=== PATIENT | female | born 1980 | race African-American/Black ===

== ENCOUNTER 2018-09-21 07:07 | Emergency (ER) | payer SELFPAY ==
[2018-09-21 07:30] LABS: #Eosinphils 0.2 thou/uL (0.0-0.7); #Lymphocytes 2.2 thou/uL (1.20-3.40); #Monocytes 0.5 thou/uL (0.11-0.59); #Neutrophils 3.7 thou/uL (1.40-6.50); %Basophils 0.7 % (0.0-1.0); %Eosinophils 2.8 % (0.0-10.0); %Lymphocytes 33.1 % (21.0-51.0); %Monocytes 7.7 % (0.0-10.0); %Neutrophils 55.7 % (42.0-75.0); Mean Corpuscular HGB CONC 31.9 g/dL (32.0-36.0); Mean Corpuscular Volume 75.3 fL (78.0-98.0); Mean Platelet Volume 8.3 fL (7.4-10.4); Platelet Count 390 thou/uL (130-400); RBC Distribution Width 15.7 % (11.5-14.5); Red Blood Cell (RBC) Count 4.58 mill/uL (4.20-5.40); White Blood Cell (WBC) Count 6.7 thou/uL (4.8-10.8)
[2018-09-21 07:53] LABS: ALT (SGPT) Less than 7 U/L (8-55); AST (SGOT) 12 U/L (5-34); Alkaline Phosphatase 72 U/L (40-150); Anion Gap 11 mmol/L (10-20); BUN (Urea Nitrogen) 10 mg/dL (7.0-18.7); Bilirubin, Total 0.3 mg/dL (0.2-1.2); Calc. Creatinine Clearance 0 mL/min (70-130); Carbon Dioxide 24 mmol/L (22-29); Chloride 105 mmol/L (98-107); Estimated GFR-MDRD 75; Globulin 3.6 g/dL (2.4-3.5); Glucose 182 mg/dL (70-105); Lipase 22 U/L (8-78); Protein, Total 7.6 g/dL (6.0-8.3); Sodium 136 mmol/L (136-145)
[2018-09-21 09:01] LABS: BHCG - Serum Negative (NEGATIVE); Pregs Control Background? CLEAR/WHITE (CLR/WHITE); Pregs Control Bar Appear? YES (CONTROL BAR)
[2018-09-21] MEDS ORDERED: Pantoprazole 40 MG VIAL ONE (09:05)
[2018-09-21] MEDS ORDERED: Ondansetron PF 4 MG/2 ML Vial ONE (09:05)
[2018-09-21] MEDS ORDERED: Ondansetron ODT 4 MG TAB ONE (09:34)
== END 2018-09-21 09:40 | disposition home or self-care (01) ==
LOC: ERS 07:07
DX: R10.9 Unspecified abdominal pain (principal); R11.2 Nausea with vomiting, unspecified; R19.7 Diarrhea, unspecified; I10 Essential (primary) hypertension; F32.9 Major depressive disorder, single episode, unspecified
CPT/HCPCS: 36415; 80053; 83690; 84703; 85025; 99284; C9113; J2405; Q0162

== ENCOUNTER 2020-04-08 01:26 | Inpatient (IN) | payer OTHER ==
[2020-04-08 01:59] LABS: #Basophils 0.1 thou/uL (0.0-0.2); #Eosinphils 0.1 thou/uL (0.0-0.7); #Lymphocytes 3.1 thou/uL (1.20-3.40); #Monocytes 0.5 thou/uL (0.11-0.59); #Neutrophils 4.5 thou/uL (1.40-6.50); %Basophils 0.7 % (0.0-1.0); %Eosinophils 1.1 % (0.0-10.0); %Monocytes 6.3 % (0.0-10.0); %Neutrophils 54.9 % (42.0-75.0); Hemoglobin 11.1 g/dL (12.0-16.0); Mean Corpuscular HGB CONC 32.4 g/dL (32.0-36.0); Mean Corpuscular Volume 74.2 fL (78.0-98.0); Platelet Count 442 thou/uL (130-400); RBC Distribution Width 17.2 % (11.5-14.5); Red Blood Cell (RBC) Count 4.61 mill/uL (4.20-5.40); White Blood Cell (WBC) Count 8.3 thou/uL (4.8-10.8)
[2020-04-08] MEDS ORDERED: Nitroglycerin 2% Ointment 1 INCH/1 GM Packet ONE (02:16)
[2020-04-08] MEDS ORDERED: hydrALAZINE 20 MG/ML VIAL ONE (02:16)
[2020-04-08 02:27] LABS: BHCG - Serum Negative (NEGATIVE); Pregs Control Background? CLEAR/WHITE (CLR/WHITE); Pregs Control Bar Appear? YES (CONTROL BAR)
[2020-04-08 02:29] LABS: ALT (SGPT) 8 U/L (8-55); AST (SGOT) 14 U/L (5-34); Alkaline Phosphatase 75 U/L (40-110); Anion Gap 17 mmol/L (10-20); BUN (Urea Nitrogen) 8 mg/dL (7.0-18.7); Bilirubin, Total 0.4 mg/dL (0.2-1.2); Calc. Creatinine Clearance 0 mL/min (70-130); Calcium 9.1 mg/dL (7.8-10.44); Carbon Dioxide 21 mmol/L (22-29); Chloride 104 mmol/L (98-107); Estimated GFR-MDRD 76; Globulin 3.5 g/dL (2.4-3.5); Glucose 126 mg/dL (70-105); Potassium 3.8 mmol/L (3.5-5.1); Protein, Total 7.5 g/dL (6.0-8.3); Sodium 138 mmol/L (136-145)
[2020-04-08] MEDS ORDERED: Ondansetron PF 4 MG/2 ML Vial ONE (02:51)
[2020-04-08] MEDS ORDERED: Furosemide 40 MG/4 ML VIAL ONE (03:48)
[2020-04-08] MEDS ORDERED: Calcium Carbonate 500 MG ChewTAB PO PRN (03:50)
--- NOTE | 2020-04-08 04:00 | PDOC.FPRHP ---
- History of Present Illness Chief Complaint: SOB, cough, ROPER History of Present Illness: Pt is a 39yo F with PMH of HTN presents to ED with two wk hx of cough, SOB, and ROPER. Today cough worsened and had blood tinged sputum. She also reports recent sx of sore throat and diarrhea x3 episodes today. She does endorse orthopnea but denies LE edema and reports occasional palpitations, not currently happening. No Fhx of early cardiac disease. No personal hx of any lung or heart disease. She denies fever, ill contacts, and COVID exposure. She has an appt with [facility] to establish care but has not been seen yet. She used to take Amlodpine/HCTZ but hasn't been on those meds for quite some time. She does not check BP's at home. ED Course: In the ED patient received 40mg IV lasix, Nitro 1" transdermal paste, Hydralazine 10mg IV, and Zofran 4mg IV. - Allergies/Adverse Reactions Allergies Allergy/AdvReac Type Severity Reaction Status Date / Time No Known Drug Allergies Allergy Verified 04/08/20 16:33 - History PMHx: HTN, depression PSHx: none FHx: DM, CAD-grandmother, father (older age) Social: Pt denies alcohol, drug, and tobacco use. PCP: [facility]- [facility] call - Review of Systems General: denies: fever/chills, weight/appetite/sleep changes, night sweats, fatigue Eyes: denies: eye pain, vision changes ENT: denies: nasal congestion, rhinorrhea Respiratory: reports: cough, congestion, shortness of breath Cardiovascular: reports: chest pain. denies: palpitation, edema, paroxysmal nocturnal dyspnea Gastrointestinal: denies: nausea, vomiting, diarrhea, constipation, abdominal pain Genitourinary: denies: incontinence, dysuria, polyuria Skin: denies: rashes, lesions Musculoskeletal: denies: pain, tenderness, stiffness, swelling Neurological: denies: numbness, syncope, seizure, weakness Psychological: denies: anxiety, depression - Vital signs BP: 146/109 HR: 103 RR: 20 Tmax: 98.7 Pox: 97% on 2L Wt: 95.25kg - Physical Exam Constitutional: NAD, awake, alert and oriented -Constitutional: obese HEENT: normocephalic and atraumatic, PERRLA, EOMI, conjunctiva clear, grossly normal vision, grossly normal hearing, MMM, oropharynx clear Neck: supple, FROM -Neck: anterior cervical LAD Chest: no-tender to palpation Heart: RRR, normal S1/S2, no murmurs/rubs/gallops -Heart: heart sounds are distant, but limited exam d/t isolation stethoscope used Lungs: CTAB, no respiratory distress, no wheezing, no retractions Abdomen: soft, bowel sounds present, no masses/distention -Abdomen: mildly tender throughout Neurological: no focal deficit Skin: no rash/lesions, capillary refill <2 seconds Heme/Lymphatic: no unusual bruising or bleeding, no purpura Psychiatric: normal mood and affect, good judgment and insight, intact recent and remote memory FMR H&P: Results - Labs Result Diagrams: 04/09/20 04:39 04/10/20 11:00 Lab results: WBC 8.3 thou/uL (4.8-10.8) 04/08/20 01:47 Hgb 11.1 g/dL (12.0-16.0) L 04/08/20 01:47 Hct 34.2 % (36.0-47.0) L 04/08/20 01:47 MCV 74.2 fL (78.0-98.0) L 04/08/20 01:47 Plt Count 442 thou/uL (130-400) H 04/08/20 01:47 Neutrophils % 54.9 % (42.0-75.0) 04/08/20 01:47 Sodium 138 mmol/L (136-145) 04/08/20 01:47 Potassium 3.8 mmol/L (3.5-5.1) 04/08/20 01:47 Chloride 104 mmol/L (98-107) 04/08/20 01:47 Carbon Dioxide 21 mmol/L (22-29) L 04/08/20 01:47 BUN 8 mg/dL (7.0-18.7) 04/08/20 01:47 Creatinine 0.99 mg/dL (0.6-1.1) 04/08/20 01:47 Glucose 126 mg/dL (70-105) H 04/08/20 01:47 Lactic Acid 2.1 mmol/L (0.5-2.2) 04/08/20 01:47 Calcium 9.1 mg/dL (7.8-10.44) 04/08/20 01:47 Total Bilirubin 0.4 mg/dL (0.2-1.2) 04/08/20 01:47 AST 14 U/L (5-34) 04/08/20 01:47 ALT 8 U/L (8-55) 04/08/20 01:47 Alkaline Phosphatase 75 U/L (40-110) 04/08/20 01:47 B-Natriuretic Peptide 235.0 pg/mL (0-100) H 04/08/20 01:47 Serum Total Protein 7.5 g/dL (6.0-8.3) 04/08/20 01:47 Albumin 4.0 g/dL (3.5-5.0) 04/08/20 01:47 - Radiology Interpretation Chest x-ray Status: image reviewed by me CT scan - chest Status: image reviewed by me, report reviewed by me (7mm nodule in RUL, groundglass opacities in L lung base) FMR H&P: A/P - Problem List (1) Acute respiratory failure with hypoxia Current Visit: Yes Status: Acute Code(s): J96.01 - ACUTE RESPIRATORY FAILURE WITH HYPOXIA (2) Elevated brain natriuretic peptide (BNP) level Current Visit: Yes Status: Acute Code(s): R79.89 - OTHER SPECIFIED ABNORMAL FINDINGS OF BLOOD CHEMISTRY (3) Person under investigation for COVID-19 Current Visit: Yes Status: Acute Code(s): Z20.828 - CONTACT W AND EXPOSURE TO OTH VIRAL COMMUNICABLE DISEASES (4) HTN (hypertension) Current Visit: Yes Status: Chronic Code(s): I10 - ESSENTIAL (PRIMARY) HYPERTENSION (5) Microcytic anemia Current Visit: Yes Status: Chronic Code(s): D50.9 - IRON DEFICIENCY ANEMIA, UNSPECIFIED - Plan Acute Hypoxic Respiratory Failure 2/2 COVID vs New Onset CHF: -CXR with groundglass opacities in LLL, no s/sx of edema on cXR or exam -BNP 200's -Hypoxic to 89% on RA, continue prn O2 -procal pending -COVID swab pending, droplet precautions in place -CP without elevation in troponin, has Twave inversion V4-V6, continue to trend trop however I think CP related to primary process -echo when COVID results -s/p Lasix and Nitro paste in ED. Continue to monitor IO and daily wt and determine need for further diuresis. Microcytic Anemia: -stable from previous visits -will get Fe studies HTN: -start daily hctz. Monitor for need of upwards titration. Dispo: Stable, LOS likely >48h DVT PPx: SCD GI PPx: none Code Status: Full PCP: [facility]- city call FMR H&P: Upper Level - Plan Date/Time: 04/08/207 I, [], have evaluated this patient and agree with findings/plan as outlined by sports management intern resident. Pertinent changes/additions are listed here. Addendum - Attending - Attending Attestation Date/Time: 04/10/202004 I personally evaluated the patient and discussed the management with Dr. Bill on 04/08/20 I agree with the History, Examination, Assessment and Plan documented above with any addition or exceptions noted below -39yo F with history of HTN on no medications presents to ED with two wk hx of cough, SOB, and ROPER. Today cough worsened and had blood tinged sputum. She also reports recent sx of sore throat and diarrhea x3 episodes today. She does endorse orthopnea but denies LE edema and reports occasional palpitations, not currently happening. No Fhx of early cardiac disease. No personal hx of any lung or heart disease. She denies fever, ill contacts, and COVID exposure. PMH/PSH/Meds/SH reviewed and agree with resident's documentation. Afebrile VSS. Exam repeated by me and agree with resident's findings. A/P: 1) Dyspnea- elevated BNP with no known h/o CHF. Given 1 dose of lasix and will monitor response. COVID swab pending. 2) HTN - restart antihypertensives. .
[2020-04-08 05:22] LABS: Lactic Acid 2.5 mmol/L (0.5-2.2)
[2020-04-08 05:26] LABS: Iron 27 ug/dL (50-170); Iron Binding Capacity, Total 481 mcg/dL (265-497)
[2020-04-08] MEDS ORDERED: Acetaminophen 325 MG TAB ONE (06:14)
[2020-04-08] MEDS: Acetaminophen 325 MG TAB PO PRN ×2 (06:24→20:14)
--- NOTE | 2020-04-08 07:27 | CT ---
PRELIMINARY REPORT/[facility]/EMERGENCY AFTER HOURS PROCEDURE EXAM: CTA Chest with Intravenous Contrast CLINICAL HISTORY: Pt reports SOB and productive cough X2 weeks, and progressively getting worse tonight TECHNIQUE: Axial CTA images of the chest with intravenous contrast. Three-dimensional MIP/volume rendered reform ations were performed. CONTRAST: With; ISOVUE 370 COMPARISON: None provided. FINDINGS: PULMONARY ARTERIES There is no intraluminal filling defect suspicious for PE. AORTA No thoracic aortic aneurysm or dissection. LUNGS 7 mm groundglass nodule in the right upper lobe. Minimal groundglass opacities at the left lung base with anterior solid opacities which are nonspecific and may represent atelectasis. PLEURAL SPACES No pleural effusion. No pneumothorax. HEART AND MEDIASTINUM The heart is top normal in size. LYMPH NODES No lymphadenopathy. BONES No focal osseous abnormality or acute fracture. CHEST WALL AND UPPER ABDOMEN 1.7 cm lobulated cyst in the posterior right hepatic lobe. IMPRESSION: No pulmonary embolism. No thoracic aortic aneurysm or dissection. 7 mm groundglass nodule in the right upper lobe. According to the 2017 Fleischner criteria, CT at 6-1 2 months to confirm persistence, then CT every 2 years until 5 years is recommended. Minimal groundglass opacities at the left lung base with anterior solid opacities which are nonspecif ic and may represent atelectasis. ELECTRONICALLY SIGNED BY: Desirae Thomas MD Apr 08, 2020 3:09:01 AM CDT This report is intended for review by the ordering physician only, in accordance of law. If you recei ve this report in error, please call [facility] at [phone]. FINAL REPORT Exam: CT angiogram of the chest HISTORY: Productive cough x2 weeks. Worsening shortness of breath. COMPARISON: None TECHNIQUE: CT angiogram of the chest is performed in the axial plane. Three-dimensional reformatted i mages are submitted for interpretation FINDINGS: Mediastinum: No mass, lymphadenopathy or hematoma. HEART: Mildly enlarged cardiac silhouette. No significant pericardial effusion Aorta: No aneurysm or dissection Upper solid abdominal viscera: Hypodensity in the right hepatic lobe measuring 1.4 x 1.7 cm, compatib le with a cyst Trachea and central bronchi: Patent Pleural spaces: No effusion Lung parenchyma: Patchy groundglass opacities. Scar and atelectasis in the lung bases. Groundglass no dule in the right upper lobe. Pneumothorax: None Osseous structures: No lytic or blastic lesions Pulmonary arteries: Adequate contrast opacification pulmonary arterial system to the level of segment al arteries. No filling defect to suggest pulmonary embolism IMPRESSION: 1. This report is in agreement with initial report by [facility]. 2. No evidence of pulmonary artery embolism to the level of segmental arteries. 3. Groundglass nodule in the right upper lobe as described in this report by [facility]. Code LN Transcribed Date/Time: 04/08/2020 8:20 AM
--- NOTE | 2020-04-08 07:40 | RAD ---
EXAM: Single view of the chest HISTORY: Chest pain COMPARISON: None FINDINGS: Single view of the chest shows an enlarged cardiomediastinal silhouette. There is no eviden ce of consolidation, mass, or pleural effusion. The bones are unremarkable. IMPRESSION: Cardiomegaly
[2020-04-08] MEDS: Ferrous Sulfate 325 MG TAB PO SCH ×2 (08:46→17:29)
[2020-04-08] MEDS: Hydrochlorothiazide 25 MG TAB PO SCH ×2 (08:46→20:09)
[2020-04-08] MEDS: Polyethylene Glycol 3350 17 GM Packet PO SCH (08:46)
[2020-04-08] MEDS ORDERED: Iopamidol 370 76% 100 ML VIAL ONE (09:26)
[2020-04-08] MEDS ORDERED: Ketorolac Tromethamine 30 MG/ML VIAL IVP SCH (17:15)
[2020-04-09 05:38] LABS: #Eosinphils 0.1 thou/uL (0.0-0.7); #Lymphocytes 2.6 thou/uL (1.20-3.40); #Monocytes 0.4 thou/uL (0.11-0.59); #Neutrophils 4.6 thou/uL (1.40-6.50); %Basophils 0.5 % (0.0-1.0); %Eosinophils 1.1 % (0.0-10.0); %Lymphocytes 33.8 % (21.0-51.0); %Monocytes 5.7 % (0.0-10.0); %Neutrophils 58.9 % (42.0-75.0); Hemoglobin 10.2 g/dL (12.0-16.0); Mean Corpuscular HGB CONC 31.7 g/dL (32.0-36.0); Mean Corpuscular Hemoglobin 23.8 pg (27.0-31.0); Mean Corpuscular Volume 75.3 fL (78.0-98.0); Mean Platelet Volume 8.7 fL (7.4-10.4); Platelet Count 408 thou/uL (130-400); RBC Distribution Width 17.2 % (11.5-14.5); Red Blood Cell (RBC) Count 4.26 mill/uL (4.20-5.40); White Blood Cell (WBC) Count 7.8 thou/uL (4.8-10.8)
[2020-04-09 05:41] LABS: Anion Gap 15 mmol/L (10-20); BUN (Urea Nitrogen) 18 mg/dL (7.0-18.7); Calc. Creatinine Clearance 101 mL/min (70-130); Calcium 9.1 mg/dL (7.8-10.44); Carbon Dioxide 24 mmol/L (22-29); Chloride 99 mmol/L (98-107); Estimated GFR-MDRD 64; Glucose 135 mg/dL (70-105); Potassium 3.7 mmol/L (3.5-5.1); Sodium 134 mmol/L (136-145)
--- NOTE | 2020-04-09 07:05 | PDOC.FM ---
- Subjective Subjective: Pt states that she feeling better this morning. She reports mild SOB when up and walking. She denies chest pain, nausea, vomiting, or diarrhea. - Objective MAR Reviewed: Yes Vital Signs & Weight: Vital Signs (12 hours) Temp Pulse Resp BP Pulse Ox 04/09/20 04:00 98.1 F 81 18 141/69 H 95 04/08/20 23:40 98.5 F 87 20 160/72 H 96 04/08/20 20:00 98.7 F 93 20 136/78 96 Weight Weight 96.071 kg Result Diagrams: 04/09/20 04:39 04/10/20 11:00 Phys Exam - Physical Examination Constitutional: NAD HEENT: moist MMs Neck: no JVD Respiratory: no wheezing, clear to auscultation bilateral Cardiovascular: RRR, no significant murmur, no rub Gastrointestinal: soft, non-tender, no distention, positive bowel sounds Musculoskeletal: pulses present, edema present (trace) Neurological: moves all 4 limbs Psychiatric: A&O x 3 Skin: cap refill <2 seconds Dx/Plan (1) Acute respiratory failure with hypoxia Code(s): J96.01 - ACUTE RESPIRATORY FAILURE WITH HYPOXIA Status: Acute (2) Person under investigation for COVID-19 Code(s): Z20.828 - CONTACT W AND EXPOSURE TO OTH VIRAL COMMUNICABLE DISEASES Status: Acute (3) HTN (hypertension) Code(s): I10 - ESSENTIAL (PRIMARY) HYPERTENSION Status: Chronic (4) Microcytic anemia Code(s): D50.9 - IRON DEFICIENCY ANEMIA, UNSPECIFIED Status: Chronic - Plan Plan: Acute hypoxic respiratory failure, Resolved COVID-19 PUI -Pending -Respiratory support as needed -Tylenol for fever/symptom control Elevated BNP -Will obtain Echo when COVID testing has resulted Microcytic anemia 2/2 iron deficiency -Iron supplementation HTN -Continue HCTZ started this hospitalization Addendum - Attending - Attending Attestation Date/Time: 04/10/202006 I personally evaluated the patient and discussed the management with Dr. Harry on 04/09/20 I agree with the History, Examination, Assessment and Plan documented above with any addition or exceptions noted below- Patient feeling better. Afebile VSS. A/P: 1) Dyspnea- improved; plan for echo once COVID status determined. Weaned off O2; continue to monitor. 2) HTN -started on lisinopril and HCTZ; continue to titrate.
[2020-04-09] MEDS: Ferrous Sulfate 325 MG TAB PO SCH ×2 (07:50→18:15)
[2020-04-09] MEDS: Polyethylene Glycol 3350 17 GM Packet PO SCH (07:50)
[2020-04-09] MEDS: Hydrochlorothiazide 25 MG TAB PO SCH ×2 (07:50→20:38)
[2020-04-09] MEDS: Acetaminophen 325 MG TAB PO PRN (15:18)
--- NOTE | 2020-04-10 06:27 | PDOC.FM ---
- Subjective Subjective: Pt states she is doing well this morning. She has some mild SOB when walking. She reports some chest pain with coughing. - Objective MAR Reviewed: Yes Vital Signs & Weight: Vital Signs (12 hours) Temp Pulse Resp BP Pulse Ox 04/10/20 03:58 98 F 89 12 163/103 H 96 04/09/20 23:15 86 16 127/66 98 04/09/20 20:41 98 F 88 15 133/70 97 Weight Admit Weight 96.434 kg Weight 94.982 kg I&O: 04/08/20 04/09/20 04/10/20 06:59 06:59 06:59 Intake Total 1180 Balance 1180 Result Diagrams: 04/09/20 04:39 04/10/20 11:00 Phys Exam - Physical Examination Constitutional: NAD HEENT: moist MMs Neck: no JVD Respiratory: no wheezing, clear to auscultation bilateral Cardiovascular: RRR, no significant murmur Gastrointestinal: soft, non-tender, no distention, positive bowel sounds Musculoskeletal: no edema, pulses present Neurological: moves all 4 limbs Psychiatric: A&O x 3 Skin: cap refill <2 seconds Dx/Plan (1) Acute respiratory failure with hypoxia Code(s): J96.01 - ACUTE RESPIRATORY FAILURE WITH HYPOXIA Status: Acute (2) Person under investigation for COVID-19 Code(s): Z20.828 - CONTACT W AND EXPOSURE TO OTH VIRAL COMMUNICABLE DISEASES Status: Acute (3) HTN (hypertension) Code(s): I10 - ESSENTIAL (PRIMARY) HYPERTENSION Status: Chronic (4) Microcytic anemia Code(s): D50.9 - IRON DEFICIENCY ANEMIA, UNSPECIFIED Status: Chronic - Plan Plan: Acute hypoxic respiratory failure, Resolved COVID-19 Negative -Respiratory support as needed -Tylenol for fever/symptom control -Will transfer to medical floor Elevated BNP -Will obtain Echo today Microcytic anemia 2/2 iron deficiency -Iron supplementation HTN -Continue HCTZ started this hospitalization Addendum - Attending - Attending Attestation Date/Time: 04/10/202009 I personally evaluated the patient and discussed the management with Dr. Harry I agree with the History, Examination, Assessment and Plan documented above with any addition or exceptions noted below- Patient feeling better; SOB resolved. Afebrile VSS. A/P: 1) Dyspnea- improved; COVID negative; echo pending. 2) HTN- BP improved; continue current meds.
[2020-04-10] MEDS: Hydrochlorothiazide 25 MG TAB PO SCH ×2 (09:20→20:11)
[2020-04-10] MEDS: Ferrous Sulfate 325 MG TAB PO SCH ×2 (09:20→17:29)
[2020-04-10] MEDS: Lisinopril 10 MG TAB PO SCH (09:20)
[2020-04-10] MEDS: Polyethylene Glycol 3350 17 GM Packet PO SCH (09:21)
[2020-04-10 11:43] LABS: Anion Gap 13 mmol/L (10-20); BUN (Urea Nitrogen) 12 mg/dL (7.0-18.7); Calc. Creatinine Clearance 107 mL/min (70-130); Calcium 9.4 mg/dL (7.8-10.44); Carbon Dioxide 29 mmol/L (22-29); Chloride 96 mmol/L (98-107); Estimated GFR-MDRD 69; Glucose 248 mg/dL (70-105); Potassium 3.6 mmol/L (3.5-5.1); Sodium 134 mmol/L (136-145)
--- NOTE | 2020-04-10 15:42 | PQF ---
CLINICAL DOCUMENTATION IMPROVEMENT CLARIFICATION FORM: ICD-10 Updated PLEASE DO AN ADDENDUM TO THE PROGRESS NOTE WITH ANY DOCUMENTATION UPDATES OR ADDITIONS AND CARRY THROUGH TO DC SUMMARY. THANK YOU. DATE: 04/10/2020 ATTN: Dr. Harry/ Attending Dr. Freddy Carr Please exercise your independent, professional judgment in responding to the clarification form. Clinical indicators are provided on the bottom of this form for your review Please check appropriate box(s): BMI > 40 with associated diagnosis of: (check one) [ x ] Morbid (Severe) Obesity [ x ] Due to excess calories [ ] Overweight [ ] Obesity [ ] Other diagnosis [ ] Unable to determine In addition, please specify: Present on Admission (POA): [ x ] Yes [ ] No [ ] Unable to Determine For continuity of documentation, please document condition throughout progress notes and discharge summary. Thank You. CLINICAL INDICATORS - SIGNS / SYMPTOMS / LABS / RESULTS AND LOCATION IN EMR H&P 04/08: Physical Exam: obese Nursing Assessment 04/08 0143: BMI 44.4 RISKS: H&P 04/08: PMH: HTN. Physical Exam: obese Acute respiratory failure with hypoxia. TREATMENT: Results Technician consult triggered for diarrhea. Order 04/08: Diet: heart healthy lo sodium BMI < 18.5 Under weight = 18.5 - 24.9 Healthy = 25.0 - 29.9 Slightly Overweight = 30.0 - 34.9 Obese/Class I = 35.0 - 39.9 Severely Obese/Class II = 40.0 and Over Morbidly Obese/Class III Thank you, Deonna (This form is maintained as a part of the permanent medical record) 2015 [employer]. All Rights Reserved Deonna Henry RN, BSN [email or web address] [employer] [facility]
[2020-04-10] MEDS: Acetaminophen 325 MG TAB PO PRN (15:52)
--- NOTE | 2020-04-11 06:12 | PDOC.FM ---
- Subjective Subjective: NAEO. Pt states she feels fine this morning. No SOB - Objective MAR Reviewed: Yes Vital Signs & Weight: Vital Signs (12 hours) Temp Pulse Resp BP Pulse Ox 04/10/20 20:00 98.2 F 88 18 124/83 96 Weight Admit Weight 96.434 kg Weight 94.886 kg I&O: 04/09/20 04/10/20 04/11/20 06:59 06:59 06:59 Intake Total 1180 600 Balance 1180 600 Result Diagrams: 04/09/20 04:39 04/10/20 11:00 Phys Exam - Physical Examination Constitutional: NAD HEENT: moist MMs Neck: no JVD Respiratory: no wheezing, clear to auscultation bilateral Cardiovascular: RRR, no significant murmur, no rub Gastrointestinal: soft, non-tender Musculoskeletal: no edema, pulses present Neurological: normal sensation, moves all 4 limbs Psychiatric: A&O x 3 Skin: normal turgor, cap refill <2 seconds Dx/Plan (1) Acute respiratory failure with hypoxia Code(s): J96.01 - ACUTE RESPIRATORY FAILURE WITH HYPOXIA Status: Acute (2) Person under investigation for COVID-19 Code(s): Z20.828 - CONTACT W AND EXPOSURE TO OTH VIRAL COMMUNICABLE DISEASES Status: Acute (3) HTN (hypertension) Code(s): I10 - ESSENTIAL (PRIMARY) HYPERTENSION Status: Chronic (4) Microcytic anemia Code(s): D50.9 - IRON DEFICIENCY ANEMIA, UNSPECIFIED Status: Chronic - Plan Plan: Acute hypoxic respiratory failure, Resolved New onset HFrEF -Will consult cardiology today -Pt to be started on aspirin, statin, ACEi, and betablocker at the time of discharge COVID-19 Negative Elevated BNP -Echo: EF 35-40, grade 1/3 diastolic heart failure Microcytic anemia 2/2 iron deficiency -Iron supplementation HTN -Continue HCTZ started this hospitalization Addendum - Attending - Attending Attestation Date/Time: 04/11/201843 I personally evaluated the patient and discussed the management with Dr. Harry I agree with the History, Examination, Assessment and Plan documented above with any addition or exceptions noted below - Patient feeling well. SOB resolved. Afebrile VSS. A/P: 1) Acute hypoxic resp failure- resolved. 2) Newly diagnosed HFrEF- transferred to telemetry; cardiology consulted; plan for cath on Tuesday. 3) HTN- BP improved; continue current meds.
[2020-04-11] MEDS: Ferrous Sulfate 325 MG TAB PO SCH ×2 (07:36→15:54)
[2020-04-11] MEDS: Hydrochlorothiazide 25 MG TAB PO SCH (07:36)
[2020-04-11] MEDS: Polyethylene Glycol 3350 17 GM Packet PO SCH (07:37)
[2020-04-11] MEDS: Lisinopril 10 MG TAB PO SCH (07:37)
[2020-04-11] MEDS: Aspirin 81 mg Enteric Coated Tablet PO SCH (08:50)
[2020-04-11] MEDS: Acetaminophen 325 MG TAB PO PRN (09:01)
[2020-04-11] MEDS ORDERED: Potassium Chloride 20 MEQ TAB PO SCH (14:45)
[2020-04-11] MEDS ORDERED: Furosemide 20 MG/2 ML VIAL SLOW IVP SCH (14:45)
[2020-04-11] MEDS ORDERED: Communication Order-Pharmacy FS SCH (15:00)
[2020-04-11] MEDS: Carvedilol 6.25 MG TAB PO SCH (15:54)
--- NOTE | 2020-04-11 15:56 | CON ---
DATE OF CONSULTATION: 04/11/2020 REASON FOR STAY: Congestive heart failure, systolic, likely acute on chronic. HISTORY OF PRESENT ILLNESS: Ms. Guerrier is a very pleasant 39-year-old woman, who said she has been having cough and difficulty with breathing for a couple of weeks. Also aware of her heart pounding and some "soreness" in her chest. She said in retrospect this has been going on about 2 weeks. She finally came to the emergency room for evaluation and she was ultimately found to have ejection fraction 35% to 40% on echocardiogram. The patient does not smoke or use tobacco. No history of diabetes. No history of high cholesterol. Otherwise, she has been healthy. ALLERGIES: SHE IS NOT TAKING ANY MEDICINES PRIOR TO ADMISSION. ALLERGIES: NONE KNOWN. SOCIAL HISTORY: As outlined above. Negative for alcohol or tobacco. REVIEW OF SYSTEMS: CONSTITUTIONAL: No significant weight gain or loss. VISION: No changes. HEARING: No changes. PULMONARY: No cough or wheezing. CARDIAC: As outlined above. She is able to lie down to about a 15 degrees angle before she starts feeling short of breath. GASTROINTESTINAL: No nausea, vomiting, or diarrhea. SKIN: No rashes. PHYSICAL EXAMINATION: GENERAL: On exam, this is a delightful 39-year-old female, resting comfortably. VITAL SIGNS: Her blood pressure 121/67; pulse is 90, sinus on the monitor. HEENT: Eyes; sclerae are nonicteric. Mouth; mucous membranes moist. NECK: Supple. No lymphadenopathy. LUNGS: Clear. No wheezing. CARDIAC: Normal S1. Normal S2. No murmur, rub, or gallop. ABDOMEN: Obese, nontender. No hepatosplenomegaly. EXTREMITIES: Warm and dry. No clubbing, cyanosis, or edema. Good dorsalis pedis pulses. DIAGNOSTIC STUDIES: Echocardiogram, ejection fraction 35% to 40%. As mentioned, she can lay flat to about 15 degrees before she feels uncomfortable. Other laboratory, hemoglobin slightly low at 10.2. EKG, sinus rhythm, nonspecific ST and T-wave changes. ASSESSMENT: 1. Congestive heart failure, systolic, acute on chronic, improving, but still not totally compensated, can lie flat. 2. Strongly suspect cardiomyopathy, but need to also consider the possibility of underlying coronary artery disease. PLAN: 1. We will change from SARAH inhibitor to Entresto. I will give her an extra dose of Lasix now and then in the morning. 2. Increase carvedilol as tolerated. 3. Proceed to cardiac catheterization on Tuesday. Discussed risk of stroke, heart attack, iodine allergy, loss of blood supply to leg or kidney, stent thrombosis, stent restenosis. She understands and wished to proceed. Job ID: [id number]
[2020-04-11] MEDS: Atorvastatin Calcium 40 MG TAB PO SCH (20:55)
--- NOTE | 2020-04-12 07:13 | PDOC.FM ---
- Subjective Subjective: Patient doing very well. No significant overnight events. Abiding by fluid restrictions. Denies chest pain, shortness of breath, cough, congestion. No concerns. Patient's mother in law present at bedside. Explained plan throughout weekend. - Objective MAR Reviewed: Yes Vital Signs & Weight: Vital Signs (12 hours) Temp Pulse Resp BP BP Pulse Ox 04/12/20 04:10 98.1 F 77 20 121/64 96 04/11/20 19:25 98.3 F 87 20 127/62 98 Weight Admit Weight 96.434 kg Weight 92.533 kg I&O: 04/11/20 04/12/20 04/13/20 06:59 06:59 06:59 Intake Total 600 960 Balance 600 960 Result Diagrams: 04/09/20 04:39 04/10/20 11:00 EKG Reviewed by me: Yes Radiology Reviewed by me: Yes Phys Exam - Physical Examination Constitutional: NAD HEENT: moist MMs Respiratory: no wheezing, clear to auscultation bilateral Cardiovascular: RRR, no significant murmur Gastrointestinal: soft, non-tender, no distention, positive bowel sounds Musculoskeletal: no edema, pulses present Neurological: non-focal, moves all 4 limbs Psychiatric: normal affect, A&O x 3 Skin: no rash, cap refill <2 seconds Dx/Plan (1) Combined systolic and diastolic heart failure Code(s): I50.40 - UNSP COMBINED SYSTOLIC AND DIASTOLIC (CONGESTIVE) HRT FAIL Status: Acute (2) Acute respiratory failure with hypoxia Code(s): J96.01 - ACUTE RESPIRATORY FAILURE WITH HYPOXIA Status: Acute (3) HTN (hypertension) Code(s): I10 - ESSENTIAL (PRIMARY) HYPERTENSION Status: Chronic (4) Microcytic anemia Code(s): D50.9 - IRON DEFICIENCY ANEMIA, UNSPECIFIED Status: Chronic - Plan Plan: 39 year old female presents with shortness of breath: Acute hypoxic respiratory failure, Resolved - 2/2 newly diagnosed combined HFpEF and HFrEF - Diurese as needed - COVID-19 Negative New onset/newly diagnosed combined HFpEF and HFrEF - Cardiology consulted; appreciate recommendations - EF 35-40% w/ grade 1/3 diastolic dysfunction - Plan for cardiac cath on Saturday 04/14 - Suspect cardiomyopathy, but need to rule out ischemic heart disease - Diurese as needed - Titrate up BB as tolerated - Continue ASA, Statin, Entresto Microcytic anemia 2/2 iron deficiency - Continue iron supplementation; Cards has ordered iron infusion - Patient getting iron infusion for Cards - TIBC, Ferritin, Iron appear to be relatively WNL HTN - HCTZ discontinued - Continue BB and Entresto for treatment of HF Hyperglycemia - Suspect DM, but do not see this documented - Will check HgA1c to further risk stratify patient - Will start patient on metformin pending HgA1c DVT ppx: SCD's, ambulation Code status: Full Dispo: Plan for cardiac cath 04/14. Addendum - Attending - Attending Attestation Date/Time: 04/12/20 1311 I personally evaluated the patient and discussed the management with Dr. Nolan I agree with the History, Examination, Assessment and Plan documented above with any addition or exceptions noted below- Patient without complaints. SOB redolved. Afebrile VSS. A/P: 1) Newly diagnosed HFrEF - plan fr cath on Tuesday. Will start entresto tomorrow. Continue carvedilol
[2020-04-12] MEDS: Potassium Chloride 20 MEQ TAB PO SCH (09:22)
[2020-04-12] MEDS: Carvedilol 6.25 MG TAB PO SCH ×2 (09:22→16:43)
[2020-04-12] MEDS: Ferrous Sulfate 325 MG TAB PO SCH ×2 (09:22→16:43)
[2020-04-12] MEDS: Aspirin 81 mg Enteric Coated Tablet PO SCH (09:22)
[2020-04-12] MEDS: Furosemide 20 MG/2 ML VIAL SLOW IVP SCH (09:23)
[2020-04-12] MEDS: Polyethylene Glycol 3350 17 GM Packet PO SCH (09:23)
[2020-04-12] MEDS ORDERED: Spironolactone 25 MG TAB PO SCH (09:30)
[2020-04-12 09:32] LABS: Iron 100 ug/dL (50-170); Iron Binding Capacity, Total 495 mcg/dL (265-497)
--- NOTE | 2020-04-12 10:18 | PRG ---
DATE OF SERVICE: 04/12/2020 SUBJECTIVE: Ms. Guerrier is feeling better. She is able to lie flat now. No chest pain. OBJECTIVE: VITAL SIGNS: Blood pressure 114/60, pulse 86 and regular, sinus on the monitor. LUNGS: Clear. CARDIAC: Normal S1, normal S2. ABDOMEN: Soft, nontender. EXTREMITIES: There is no edema. ASSESSMENT: 1. Congestive heart failure, systolic, probably a cardiomyopathy. 2. Iron-deficiency anemia. Ferritin level is 17. PLAN: 1. Start Entresto tomorrow, that will be 48 hours after off SARAH inhibitors. 2. Cardiac catheterization on Tuesday, risk have been explained. 3. Add spironolactone. 4. Continue carvedilol. 5. Continue furosemide. Job ID: [id number]
--- NOTE | 2020-04-12 14:39 | EKG ---
Test Reason : Blood Pressure : / mmHG Vent. Rate : 113 BPM Atrial Rate : 113 BPM P-R Int : 144 ms QRS Dur : 092 ms QT Int : 326 ms P-R-T Axes : 038 073 022 degrees QTc Int : 447 ms Sinus tachycardia with Premature supraventricular complexes Possible Left atrial enlargement T wave abnormality, consider lateral ischemia Abnormal ECG Confirmed by KATELIN MENDEZ ([id number]), production editor WILLIAN CROWE ([id number]) on 04/12/2020 2:39:28 PM Referred By: Confirmed By:KATELIN MENDEZ
[2020-04-12 16:17] LABS: Hemoglobin A1c 7.2 % (4.0-6.0)
[2020-04-12] MEDS: Iron, Sodium Ferric Gluconate 250 MG in Sodium Chloride 0.9% 100 ML IVPB SCH (21:29)
[2020-04-12] MEDS: Atorvastatin Calcium 40 MG TAB PO SCH (21:29)
[2020-04-13] MEDS: Acetaminophen 325 MG TAB PO PRN ×2 (00:20→03:40)
[2020-04-13] MEDS ORDERED: diphenhydrAMINE 50 MG/ML VIAL IVP SCH (00:30)
[2020-04-13] MEDS ORDERED: Ondansetron PF 4 MG/2 ML Vial IVP PRN (00:31)
[2020-04-13] MEDS ORDERED: methylPREDNISolone Sod Succ/PF 125 MG/2 ML VIAL IVP SCH (00:45)
[2020-04-13] MEDS ORDERED: Dextrose 50% Abboject 50 ML SYRINGE SLOW IVP PRN (01:24)
[2020-04-13] MEDS ORDERED: Dextrose 5% in Water 1,000 ML IV PRN (01:24)
[2020-04-13] MEDS ORDERED: Ondansetron ODT 4 MG TAB PO PRN (04:46)
[2020-04-13] MEDS: HumaLOG 300 UNITS/3 ML VIAL SC PRN ×3 (06:09→17:52)
[2020-04-13] MEDS ORDERED: Ibuprofen 600 MG TAB PO PRN (06:30)
[2020-04-13] MEDS ORDERED: Spironolactone 25 MG TAB PO SCH (08:00)
[2020-04-13] MEDS: Potassium Chloride 20 MEQ TAB PO SCH (08:52)
[2020-04-13] MEDS: Iron, Sodium Ferric Gluconate 250 MG in Sodium Chloride 0.9% 100 ML IVPB SCH (08:53)
[2020-04-13] MEDS: Aspirin 81 mg Enteric Coated Tablet PO SCH (08:54)
[2020-04-13] MEDS: Furosemide 20 MG/2 ML VIAL SLOW IVP SCH (08:54)
[2020-04-13] MEDS: Ferrous Sulfate 325 MG TAB PO SCH ×2 (08:54→16:11)
[2020-04-13] MEDS: Carvedilol 6.25 MG TAB PO SCH ×2 (08:54→16:12)
[2020-04-13] MEDS: Polyethylene Glycol 3350 17 GM Packet PO SCH (08:55)
[2020-04-13 09:09] LABS: Anion Gap 19 mmol/L (10-20); BUN (Urea Nitrogen) 29 mg/dL (7.0-18.7); Calc. Creatinine Clearance 72 mL/min (70-130); Calcium 9.5 mg/dL (7.8-10.44); Carbon Dioxide 19 mmol/L (22-29); Chloride 99 mmol/L (98-107); Estimated GFR-MDRD 46; Glucose 300 mg/dL (70-105); Potassium 5.8 mmol/L (3.5-5.1); Sodium 131 mmol/L (136-145)
[2020-04-13] MEDS ORDERED: Lactated Ringer's 500 ML IV SCH ×3 (09:30→10:03)
--- NOTE | 2020-04-13 09:36 | PDOC.FM ---
- Subjective Subjective: Patient states that she had a very bad reaction to iron infusion last night and is refusing second iron infusion today. She currently denies chest pain, shortness of breath, N/V. She endorses some left lower leg pain, but denies significant swelling. She has been ambulating. - Objective MAR Reviewed: Yes Vital Signs & Weight: Vital Signs (12 hours) Temp Pulse Resp BP BP Pulse Ox 04/13/20 07:21 98.2 F 79 18 135/63 96 04/13/20 03:14 97.9 F 87 18 117/79 97 04/13/20 00:07 98.1 F 107 H 26 H 176/94 H 97 Weight Admit Weight 96.434 kg Weight 92.533 kg I&O: 04/12/20 04/13/20 04/14/20 06:59 06:59 06:59 Intake Total 960 740 Output Total 1600 Balance 960 -860 Result Diagrams: 04/09/20 04:39 04/13/20 08:42 EKG Reviewed by me: Yes Radiology Reviewed by me: Yes Phys Exam - Physical Examination Constitutional: NAD HEENT: moist MMs Respiratory: no wheezing, clear to auscultation bilateral Cardiovascular: RRR, no significant murmur Gastrointestinal: soft, non-tender, no distention, positive bowel sounds Musculoskeletal: no edema, pulses present Mild TTP over left anterior lower leg, no erythema Neurological: non-focal, moves all 4 limbs Psychiatric: normal affect, A&O x 3 Skin: no rash, cap refill <2 seconds Dx/Plan (1) Combined systolic and diastolic heart failure Code(s): I50.40 - UNSP COMBINED SYSTOLIC AND DIASTOLIC (CONGESTIVE) HRT FAIL Status: Acute (2) Acute respiratory failure with hypoxia Code(s): J96.01 - ACUTE RESPIRATORY FAILURE WITH HYPOXIA Status: Acute (3) HTN (hypertension) Code(s): I10 - ESSENTIAL (PRIMARY) HYPERTENSION Status: Chronic (4) Microcytic anemia Code(s): D50.9 - IRON DEFICIENCY ANEMIA, UNSPECIFIED Status: Chronic - Plan Plan: 39 year old female presents with shortness of breath: Acute hypoxic respiratory failure, Resolved - 2/2 newly diagnosed combined HFpEF and HFrEF - Diurese as needed - COVID-19 Negative New onset/newly diagnosed combined HFpEF and HFrEF - Cardiology consulted; appreciate recommendations - EF 35-40% w/ grade 1/3 diastolic dysfunction - Plan for cardiac cath on Saturday 04/14 - Suspect cardiomyopathy, but need to rule out ischemic heart disease - Diurese as needed - Titrate up BB as tolerated - Continue ASA, Statin, Entresto Microcytic anemia 2/2 iron deficiency - Continue iron supplementation; Cards has ordered iron infusion - Patient getting iron infusion for Cards; she received one iron infusion last night and did not tolerate well. She is declining infusion today. - TIBC, Ferritin, Iron appear to be relatively WNL HTN - HCTZ discontinued - Continue BB and Entresto for treatment of HF Type II DM, new diagnosis - HgA1c 7.2 - Hyperglycemia protocol - Will start on metformin once done with cath Hyperkalemia - 5.8 on BMP this AM - Will hold spironolactone - Patient also on Entresto - Will d/c potassium supplementation - Labs came back after medications administered - Repeat BMP this afternoon to reassess NEHEMIAH - Cr function declined this AM - Fluid bolus given as this may be due to contraction - Will reassess this afternoon DVT ppx: SCD's, ambulation Code status: Full Dispo: Plan for cardiac cath 04/14. Addendum - Attending - Attending Attestation Date/Time: 04/13/20 0917 I personally evaluated the patient and discussed the management with Dr. Nolan I agree with the History, Examination, Assessment and Plan documented above with any addition or exceptions noted below - Patient without complaints. Afebrile VSS A/P: 1) Newly diagnosed HFrEF- plan for cath tomorrow. 2) NEHEMIAH- plan for fluid bolus and recheck labs later today. 3) Hyperkalemia- hold potassium , spironolactone, and entresto. 4) Newly diagnosed DM- monitor accuchecks; diabetic education and will start meds after catherization.
--- NOTE | 2020-04-13 10:47 | PRG ---
DATE OF SERVICE: 04/13/2020 SUBJECTIVE: Ms. Guerrier got intravenous iron last night, but she had burning in her hand and then numbness in both hands. She felt very poorly, did not feel well with intravenous iron, that was stopped. This morning, she is not having chest pain or pressure. OBJECTIVE: VITAL SIGNS: Her blood pressure is 135/69 and pulse is 79. LUNGS: Clear. CARDIAC: Normal S1 and normal S2. ABDOMEN: Soft and nontender. PERTINENT LABORATORY DATA: Creatinine has gone up to 1.54 and potassium is up to 5.8. The patient did receive spironolactone this morning, also Entresto as well as ibuprofen. ASSESSMENT: Acute renal insufficiency probably multifactorial, including diuretics. PLAN: 1. Agree with stopping potassium. 2. Stop spironolactone, she did receive that this morning. 3. Stop ibuprofen. 4. Stop iron. 5. Stop furosemide, she did receive that this morning. 6. As mentioned, she also received potassium this morning, probably will not be able to proceed to catheterization tomorrow until the electrolytes are stabilized. I agree with the fluid, will slow down the rate initially was ordered as 999 an hour, will cut to 200. We will follow with you. Job ID: [id number]
[2020-04-13] MEDS ORDERED: HumaLOG 300 UNITS/3 ML VIAL SC PRN (14:49)
[2020-04-13 16:29] LABS: Anion Gap 17 mmol/L (10-20); BUN (Urea Nitrogen) 31 mg/dL (7.0-18.7); Calc. Creatinine Clearance 77 mL/min (70-130); Calcium 9.6 mg/dL (7.8-10.44); Carbon Dioxide 21 mmol/L (22-29); Chloride 98 mmol/L (98-107); Estimated GFR-MDRD 49; Glucose 354 mg/dL (70-105); Potassium 5.7 mmol/L (3.5-5.1); Sodium 130 mmol/L (136-145)
[2020-04-13] MEDS ORDERED: Sodium Chloride 0.9% 1,000 ML IV SCH (18:46)
[2020-04-13] MEDS: Atorvastatin Calcium 40 MG TAB PO SCH (21:25)
[2020-04-13] MEDS: Sodium Chloride 0.9% 1,000 ML IV SCH (22:04)
[2020-04-14] MEDS ORDERED: Diazepam 5 MG TAB PO SCH (06:00)
[2020-04-14] MEDS ORDERED: Sodium Chloride 0.9% 1,000 ML IV SCH (06:00)
[2020-04-14] MEDS: HumaLOG 300 UNITS/3 ML VIAL SC PRN (06:07)
[2020-04-14] MEDS: Sodium Chloride 0.9% 1,000 ML IV SCH (06:15)
[2020-04-14] MEDS: Carvedilol 6.25 MG TAB PO SCH ×2 (06:49→16:49)
[2020-04-14] MEDS: Aspirin 81 mg Enteric Coated Tablet PO SCH (06:49)
--- NOTE | 2020-04-14 06:58 | PDOC.FM ---
- Subjective Subjective: Denies SOB, chest pain. NPO for cardiac cath this AM. - Objective MAR Reviewed: Yes Vital Signs & Weight: Vital Signs (12 hours) Temp Pulse Resp BP BP BP Pulse Ox 04/14/20 06:49 128/57 L 04/14/20 04:06 97.6 F 62 16 123/58 L 97 04/14/20 00:10 98.3 F 84 12 126/58 L 98 04/13/20 19:30 98.5 F 88 20 128/61 96 Weight Admit Weight 96.434 kg Weight 97.432 kg I&O: 04/12/20 04/13/20 04/14/20 06:59 06:59 06:59 Intake Total 893 810 6103 Output Total 1600 1050 Balance 960 -860 650 Result Diagrams: 04/09/20 04:39 04/14/20 06:40 Phys Exam - Physical Examination Constitutional: NAD HEENT: moist MMs Neck: supple Respiratory: no wheezing, clear to auscultation bilateral Cardiovascular: RRR Gastrointestinal: soft Musculoskeletal: no edema Neurological: moves all 4 limbs Psychiatric: normal affect, A&O x 3 Skin: no rash Dx/Plan - Plan Plan: New onset/newly diagnosed combined HFpEF and HFrEF - Cardiology consulted; appreciate recs - EF 35-40% w/ grade 1/3 diastolic dysfunction - Plan for cardiac cath on Saturday 04/14 - Suspect cardiomyopathy, but need to rule out ischemic heart disease - Diurese as needed. Strict I&Os. Daily wt. - Titrate up BB as tolerated - Continue ASA, Statin, Entresto. Holding spironolactone for NEHEMIAH Microcytic anemia 2/2 iron deficiency - Continue iron supplementation - TIBC, Ferritin, Iron appear to be relatively WNL HTN - HCTZ discontinued - Continue BB, Entresto Type II DM, new diagnosis - HgA1c 7.2 - Accuchecks - Will start on metformin once done with cath - DM education Hyperkalemia - 5.8 on BMP this AM - hold spironolactone and Entresto NEHEMIAH - Cr function declined this AM - Fluid bolus given as this may be due to contraction - Will reassess this afternoon Acute hypoxic respiratory failure, Resolved - 2/2 newly diagnosed combined HFpEF and HFrEF - COVID-19 Negative DVT ppx: SCD's, ambulation Code status: Full Dispo: Plan for cardiac cath 04/14.
[2020-04-14 07:08] LABS: Anion Gap 19 mmol/L (10-20); BUN (Urea Nitrogen) 25 mg/dL (7.0-18.7); Calc. Creatinine Clearance 91 mL/min (70-130); Calcium 9.4 mg/dL (7.8-10.44); Carbon Dioxide 19 mmol/L (22-29); Chloride 102 mmol/L (98-107); Estimated GFR-MDRD 56; Glucose 209 mg/dL (70-105); Potassium 4.9 mmol/L (3.5-5.1); Sodium 135 mmol/L (136-145)
[2020-04-14] MEDS ORDERED: Insulin Glargine 5 UNITS in Pre-Filled Syringe 1 EACH SC SCH (09:00)
[2020-04-14] MEDS: Ferrous Sulfate 325 MG TAB PO SCH ×2 (09:15→16:48)
[2020-04-14] MEDS: Polyethylene Glycol 3350 17 GM Packet PO SCH (09:16)
[2020-04-14] MEDS ORDERED: Iopamidol 370 76% 100 ML VIAL ONE (09:21)
[2020-04-14] MEDS ORDERED: Fentanyl 100 MCG/2 ML VIAL ONE (10:16)
[2020-04-14] MEDS ORDERED: Midazolam HCl 2 mg/2 ml Vial ONE (10:16)
[2020-04-14] MEDS ORDERED: Nitroglycerin 100MG/250ML BOT 250 ML ONE (10:33)
[2020-04-14] MEDS ORDERED: Sodium Chloride 0.9% 200 ML IV PRN (10:59)
[2020-04-14] MEDS ORDERED: Acetaminophen/Codeine 30-300mg Tablet PO PRN ×2 (10:59)
[2020-04-14] MEDS ORDERED: Nitroglycerin 0.4 MG TAB (25 Tab Bottle) SL PRN (10:59)
[2020-04-14 11:51] LABS: Cardiac Risk 5.6 (Less than 4.5)
[2020-04-14 12:07] LABS: Syphilis Antibody Nonreactive (Nonreactive); Syphilis Antibody Index 0.02 S/CO (<1.00 Non-Reactive)
[2020-04-14 12:09] LABS: HBSAg Index 0.17 S/CO (0-0.99); HIV (1/2) Antibody/Antigen Non-Reactive (NonReactive); HIV 1/2 INDEX 0.08 S/CO (<1.00); Hep B Surf Ag Non-Reactive S/CO (NonReactive); Hep C IgG Ab Non-Reactive (NonReactive); Hep C Index 0.48 S/CO (0-0.79)
[2020-04-14 12:12] LABS: HBSAB Concentration 165.32 mIU/mL; Hep B Surf AB Reactive (NonReactive)
--- NOTE | 2020-04-14 12:14 | PRG ---
DATE OF SERVICE: 04/14/2020 Ms. Guerrier is a pleasant 39-year-old lady, who was admitted with symptoms of heart failure. Subsequent echocardiogram revealed an ejection fraction of 35% to 40% with grade 1/3 diastolic dysfunction. She has been seen by Cardiology and is to undergo a cardiac catheterization later today. Interestingly, she also has a history of snoring and gasping respirations, suggesting the possibility of sleep apnea. This should be worked up with sleep study as an outpatient. She is on Entresto and we will await further input from Cardiology following her cardiac catheterization. Job ID: [id number]
[2020-04-14 14:22] VITALS: BMI 44.9
[2020-04-14] MEDS: Atorvastatin Calcium 40 MG TAB PO SCH (21:00)
[2020-04-15] MEDS: HumaLOG 300 UNITS/3 ML VIAL SC PRN ×2 (06:20→12:41)
--- NOTE | 2020-04-15 06:45 | PDOC.FM ---
- Subjective Subjective: No overnight events. Denies chest pain, SOB. Cath site with no soreness. Normal Cath yesterday. - Objective MAR Reviewed: Yes Vital Signs & Weight: Vital Signs (12 hours) Temp Pulse Resp BP Pulse Ox 04/15/20 03:20 98.3 F 66 16 93/51 L 97 04/14/20 23:55 98.7 F 75 12 111/50 L 95 04/14/20 21:00 98.5 F 77 12 117/55 L 96 04/14/20 18:59 95 Weight Admit Weight 96.434 kg Weight 96.887 kg I&O: 04/13/20 04/14/20 04/15/20 06:59 06:59 06:59 Intake Total 740 1700 600 Output Total 1600 1050 500 Balance -860 650 100 Result Diagrams: 04/09/20 04:39 04/14/20 06:40 Phys Exam - Physical Examination Constitutional: NAD HEENT: moist MMs Neck: supple Respiratory: no wheezing, clear to auscultation bilateral Cardiovascular: RRR, no significant murmur Gastrointestinal: soft Musculoskeletal: no edema Neurological: moves all 4 limbs Psychiatric: normal affect, A&O x 3 Skin: no rash Dx/Plan - Plan Plan: New onset/newly diagnosed combined HFpEF and HFrEF - Cardiology consulted; appreciate recs - EF 35-40% w/ grade 1/3 diastolic dysfunction - Cath 04/14 - Diurese as needed. Strict I&Os. Daily wt. - Continue ASA, BB, Statin, Entresto. Holding spironolactone for NEHEMIAH Microcytic anemia 2/2 iron deficiency - Continue iron supplementation HTN - Continue BB, Entresto Type II DM, new diagnosis - HgA1c 7.2 - Accuchecks - Started on Metformin. Continue Lantus while inpatient. Will likely need to add another agent such as SGLT-2 outpt. Hyperkalemia, resolved NEHEMIAH, improving Acute hypoxic respiratory failure, Resolved - 2/2 newly diagnosed combined HFpEF and HFrEF - COVID-19 Negative Cardiomyopathy DVT ppx: SCD's Code status: Full Addendum - Attending - Attending Attestation Date/Time: 04/15/20 7024 I personally evaluated the patient and discussed the management with Dr. Leary. I agree with the History, Examination, Assessment and Plan documented above with any addition or exceptions noted below. Patient feels well, diagnosis of nonischemic cardiomyopathy. Awaiting [facility] set up and any further cardiology recs but may be ready for discharge later today.
[2020-04-15] MEDS ORDERED: metFORMIN XR 500 MG TAB PO SCH (08:00)
[2020-04-15] MEDS ORDERED: metFORMIN 500 MG TAB PO SCH (08:00)
[2020-04-15] MEDS: Carvedilol 6.25 MG TAB PO SCH (08:56)
[2020-04-15] MEDS: Aspirin 81 mg Enteric Coated Tablet PO SCH (08:56)
[2020-04-15] MEDS: Ferrous Sulfate 325 MG TAB PO SCH (08:58)
[2020-04-15] MEDS: Polyethylene Glycol 3350 17 GM Packet PO SCH (08:58)
[2020-04-15] MEDS ORDERED: Insulin Glargine 10 UNITS in Pre-Filled Syringe 1 EACH SC SCH (09:00)
[2020-04-15] MEDS ORDERED: Insulin Glargine 5 UNITS in Pre-Filled Syringe 1 EACH SC SCH (09:00)
[2020-04-15 11:45] VITALS: BP 102/52; TEMP 98.6
[2020-04-15 13:05] LABS: Anion Gap 10 mmol/L (10-20); BUN (Urea Nitrogen) 22 mg/dL (7.0-18.7); Calc. Creatinine Clearance 118 mL/min (70-130); Calcium 8.8 mg/dL (7.8-10.44); Carbon Dioxide 27 mmol/L (22-29); Chloride 103 mmol/L (98-107); Estimated GFR-MDRD 76; Glucose 150 mg/dL (70-105); Potassium 4.6 mmol/L (3.5-5.1); Sodium 135 mmol/L (136-145)
--- NOTE | 2020-04-16 08:36 | DIS ---
DATE OF ADMISSION: 04/08/2020 DATE OF DISCHARGE: 04/15/2020 RESIDENT: Martha Leary MD, PGY-2 ADMITTING ATTENDING: Yue Lu MD DISCHARGE ATTENDING: Bobby Cadena MD CONSULT: Cardiology, Dr. Shaw. PROCEDURES: 1. Chest x-ray 04/08/2020, cardiomegaly. 2. Chest thorax CTA 04/08/2020. Report is in agreement with the initial report. No evidence of pulmonary artery embolism to the level of segmental arteries. Ground-glass nodule in the right upper lobe. 3. 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 Cardiomyopathy. 4. Echocardiogram 04/10/2020, EF 35% to 40%. Grade 1/3 diastolic dysfunction. Inferior hypokinesis. Mildly dilated right atrium. Thickened mitral valve leaflets. Mild to moderate mitral regurg. Mild tricuspid regurg. PRIMARY DIAGNOSES: 1. New diagnosis of heart failure with preserved ejection fraction and heart failure with reduced ejection fraction. 2. Cardiomyopathy. SECONDARY DIAGNOSES: 1. Microcytic anemia secondary to iron deficiency anemia. 2. Hypertension. 3. Type 2 diabetes, new diagnosis. 4. Hyperkalemia, resolved. 5. Acute kidney injury, improving. 6. Acute hypoxic respiratory failure, resolved. DISCHARGE MEDICATIONS: 1. Aspirin 81 mg daily. 2. Atorvastatin 40 mg at bedtime. 3. Coreg 6.25 mg b.i.d. 4. Ferrous sulfate 325 mg b.i.d. 5. Furosemide 20 mg daily. 6. Metformin 500 mg extended release q.a.m. 7. Entresto 1 tablet b.i.d. HISTORY OF PRESENT ILLNESS/HOSPITAL COURSE: Ms. Guerrier is a 39-year-old female with past medical history of hypertension, presented to the ED with cough and shortness of breath. She is noted to have BNP in the 200s. Chest x-ray with ground-glass opacities in left lower lobe, hypoxic on 89% on room air. She was given 40 mg of Lasix, nitroglycerin 1 inch transdermal paste, hydralazine 10 mg IV, and Zofran 4 mg IV. She was started on supplemental oxygen. Her COVID test was negative. Procalcitonin negative. She had a normal troponin. T-wave inversion in V4 through V6 on EKG. Her echo showed new finding of diastolic and systolic heart failure. Cardiology was consulted as well as cardiac rehab. In regard to her hypertension, she was started on hydrochlorothiazide. She was also found to have microcytic anemia secondary to iron deficiency. She was started on supplementation. In regard to her new onset of heart failure, she is on aspirin, statin, and SARAH inhibitor and beta sukumar. SARAH inhibitor was transitioned over to Entresto. She is also does found to have a new diagnosis of diabetes with an A1c of 7.2. She was started on metformin after her cardiac cath. She did require some insulin 5 units of Lantus while inpatient. She may need another agent outpatient such as a GLP-1 or SGLT2. We recommend following up with primary care regarding this. She will discharge on metformin. She has also became hyperkalemic during hospitalization with a potassium of 5.8. Her spironolactone was held and this resolved hyperkalemia. She also developed an NEHEMIAH, the creatinine of 1.54 and 1.29 at discharge with a BMP pending. She was on room air at discharge and not having any shortness of breath or chest pain. DISPOSITION: Stable. DISCHARGE INSTRUCTIONS: 1. Location: Home. 2. Diet: Heart healthy, diabetic, carb consistent. 3. Activity: Cardiopulmonary limitations. 4. Follow up with Dr. Shaw in 2 weeks and PCP within 7 days. Job ID: [id number]
[2020-04-16] MEDS ORDERED: Furosemide 20 MG TAB PO SCH (09:00)
== END 2020-04-15 13:30 | disposition home or self-care (01) | DRG 286 ==
LOC: ERS 01:26 → ERHOLD 03:28 → 2SW 16:23 → T4-A 04-10 12:42 → 2NO 04-11 10:56
PROVIDERS: ADMIT Family Medicine; ATTEND Family Medicine
PROC: 4A023N7 Measurement of Cardiac Sampling and Pressure, Left Heart, Percutaneous Approach (ICD-10-PCS; principal; 2020-04-08)
PROC: B2111ZZ Fluoroscopy of Multiple Coronary Arteries using Low Osmolar Contrast (ICD-10-PCS; 2020-04-08)
PROC: B2151ZZ Fluoroscopy of Left Heart using Low Osmolar Contrast (ICD-10-PCS; 2020-04-08)
PROC: 8E0ZXY6 Isolation (ICD-10-PCS; 2020-04-08)
DX: I11.0 Hypertensive heart disease with heart failure (principal); J96.01 Acute respiratory failure with hypoxia; N17.9 Acute kidney failure, unspecified; Z68.41 Body mass index [BMI] 40.0-44.9, adult; D50.9 Iron deficiency anemia, unspecified; I50.43 Acute on chronic combined systolic (congestive) and diastolic (congestive) heart failure; I42.8 Other cardiomyopathies; Z20.828 Contact with and (suspected) exposure to other viral communicable diseases; E87.5 Hyperkalemia; I08.1 Rheumatic disorders of both mitral and tricuspid valves; F32.9 Major depressive disorder, single episode, unspecified; I16.0 Hypertensive urgency; E66.01 Morbid (severe) obesity due to excess calories; E11.65 Type 2 diabetes mellitus with hyperglycemia; Z79.4 Long term (current) use of insulin
CPT/HCPCS: 36415; 36416; 71045; 71275; 76942; 80048; 80053; 80061; 82728; 83036; 83540; 83550; 83605; 83880; 84145; 84484; 84703; 85025; 85379; 86706; 86780; 86803; 87340; 87389; 87635; 93005; 93306; 93458; 93798; 94760; 96374; 96375; 99152; 99153; J0360; J1644; J1815; J1885; J1940; J2250; J2405; J2916; J2930; J3010; J3490; Q0162; Q9967; U0003

== ENCOUNTER 2020-07-14 10:57 | Observation (INO) | payer OTHER ==
[2020-07-14 11:54] LABS: #Eosinphils 0.1 thou/uL (0.0-0.7); #Lymphocytes 2.8 thou/uL (1.20-3.40); #Monocytes 0.4 thou/uL (0.11-0.59); #Neutrophils 3.7 thou/uL (1.40-6.50); %Basophils 0.3 % (0.0-1.0); %Eosinophils 1.6 % (0.0-10.0); %Lymphocytes 39.5 % (21.0-51.0); %Neutrophils 52.7 % (42.0-75.0); Hemoglobin 10.8 g/dL (12.0-16.0); Mean Corpuscular HGB CONC 31.6 g/dL (32.0-36.0); Mean Corpuscular Volume 82.4 fL (78.0-98.0); Mean Platelet Volume 7.8 fL (7.4-10.4); Platelet Count 395 thou/uL (130-400); RBC Distribution Width 15.2 % (11.5-14.5); Red Blood Cell (RBC) Count 4.14 mill/uL (4.20-5.40); White Blood Cell (WBC) Count 7.1 thou/uL (4.8-10.8)
--- NOTE | 2020-07-14 12:18 | RAD ---
EXAM: CHEST ONE VIEW HISTORY: Heart palpitations. COMPARISON: 06/08/2020 FINDINGS: Cardiac silhouette remains mildly enlarged. Pulmonary vasculature is within normal limits. The lungs are clear. The osseous structures are intact. IMPRESSION: No acute cardiopulmonary process.
[2020-07-14 12:34] LABS: AST (SGOT) 21 U/L (5-34); Bilirubin, Total 0.4 mg/dL (0.2-1.2); Calcium 9.2 mg/dL (7.8-10.44); Chloride 102 mmol/L (98-107); Potassium 4.4 mmol/L (3.5-5.1); Sodium 138 mmol/L (136-145)
[2020-07-14 12:45] LABS: Albumin 4.1 g/dL (3.5-5.0)
[2020-07-14 12:48] LABS: Globulin 3.1 g/dL (2.4-3.5); Glucose 133 mg/dL (70-105); Protein, Total 7.2 g/dL (6.0-8.3)
[2020-07-14 12:49] LABS: Carbon Dioxide 27 mmol/L (22-29)
[2020-07-14 12:51] LABS: Alkaline Phosphatase 69 U/L (40-110); Calc. Creatinine Clearance 0 mL/min (70-130); Estimated GFR-MDRD 78
[2020-07-14 12:52] LABS: BUN (Urea Nitrogen) 11 mg/dL (7.0-18.7)
[2020-07-14 12:54] LABS: ALT (SGPT) 23 U/L (8-55); CK (CPK) 103 U/L (29-168); Lipase 26 U/L (8-78)
[2020-07-14 13:09] LABS: Anion Gap 13 mmol/L (10-20)
--- NOTE | 2020-07-14 13:20 | PDOC.FPRHP ---
- History of Present Illness Chief Complaint: Chest Pain History of Present Illness: This is a 39 y/o F with PMHx of HFrEF, DM, HTN, Cardiomyopathy, and Iron Def. Anemia presenting with chest pain for the past 2-3 days. She states that the pain started a couple days ago on the L side of her chest and admitted to radiation to her bilateral arms. Today both her hands are tingling/numb, however, she denies having weakness/numbness of one side of her body, facial droop, slurred speech, or dyspnea with her chest pain. She did not take any medication with the onset of her chest pain. She states that since her last admission she is doing well and has been compliant with her medications. She is seeing a snubber in the [place] currently for her care. She had no other complaints today. ED Course: ASA, nitro - Allergies/Adverse Reactions Allergies Allergy/AdvReac Type Severity Reaction Status Date / Time No Known Drug Allergies Allergy Verified 04/08/20 16:33 - Home Medications Medication Instructions Recorded Confirmed Type Aspirin [Ecotrin Low Strength] 81 mg PO DAILY #30 tab 04/15/20 07/15/20 Rx Atorvastatin Calcium [Lipitor] 40 mg PO HS #30 tab 04/15/20 07/15/20 Rx Ferrous Sulfate [Feosol] 325 mg PO BID-WM #30 tab 04/15/20 07/15/20 Rx Furosemide [Lasix] 20 mg PO DAILY #30 tab 04/15/20 07/15/20 Rx Carvedilol [Coreg] 12.5 mg PO BID-WM #30 tab 07/15/20 Rx Sacubitril/Valsartan 49/51 1 tab PO BID #30 tab 07/15/20 Rx [Entresto 49 mg-51 mg Tablet] metFORMIN HCl [Metformin ER 500 mg PO QAM 07/15/20 07/15/20 History Osmotic] metFORMIN [Glucophage] 500 mg PO QAM-WM tab 07/15/20 Rx - History PMHx: -CHF -DM -HTN -Cardiomyopathy -Iron def. anemia PSHx: -none FHx: -father: CAD Social: -no tobacco or drug use, occasional etoh use - Review of Systems General: denies: fever/chills Eyes: denies: eye pain, vision changes ENT: denies: nasal congestion Respiratory: denies: cough, congestion Cardiovascular: reports: chest pain. denies: palpitation Gastrointestinal: reports: nausea. denies: vomiting, diarrhea, GI bleeding Genitourinary: denies: incontinence, dysuria, polyuria Skin: denies: rashes, lesions Musculoskeletal: reports: swelling. denies: pain, tenderness, stiffness Neurological: denies: numbness, syncope, seizure, weakness Psychological: denies: anxiety, depression - Vital signs BP: 167/93, HR 66, RR 30, O2 99%, Temp 98.6 - Physical Exam Constitutional: NAD HEENT: normocephalic and atraumatic, grossly normal vision, grossly normal hearing Neck: supple Chest: no lesions -Chest: TTP of L side of chest near ribs 3-4 Heart: RRR, normal S1/S2, no murmurs/rubs/gallops, no edema Lungs: CTAB, no respiratory distress, good air movement, no wheezing, no retractions Abdomen: soft, non-tender, bowel sounds present, no masses/distention, no hernias Musculoskeletal: normal structure, normal tone, ROM grossly normal -Musculoskeletal: bilateral pedal edema Neurological: no focal deficit, CN II-XII intact, normal sensation Skin: no rash/lesions, good turgor, capillary refill <2 seconds Heme/Lymphatic: no unusual bruising or bleeding, no purpura Psychiatric: normal mood and affect, good judgment and insight, intact recent an d remote memory FMR H&P: Results - Labs Result Diagrams: 07/14/20 11:41 07/14/20 11:41 Lab results: WBC 7.1 thou/uL (4.8-10.8) 07/14/20 11:41 Hgb 10.8 g/dL (12.0-16.0) L 07/14/20 11:41 Hct 34.1 % (36.0-47.0) L 07/14/20 11:41 MCV 82.4 fL (78.0-98.0) 07/14/20 11:41 Plt Count 395 thou/uL (130-400) 07/14/20 11:41 Neutrophils % 52.7 % (42.0-75.0) 07/14/20 11:41 Sodium 138 mmol/L (136-145) 07/14/20 11:41 Potassium 4.4 mmol/L (3.5-5.1) 07/14/20 11:41 Chloride 102 mmol/L (98-107) 07/14/20 11:41 Carbon Dioxide 27 mmol/L (22-29) 07/14/20 11:41 BUN 11 mg/dL (7.0-18.7) 07/14/20 11:41 Creatinine 0.97 mg/dL (0.6-1.1) 07/14/20 11:41 Glucose 133 mg/dL (70-105) H 07/14/20 11:41 Calcium 9.2 mg/dL (7.8-10.44) 07/14/20 11:41 Total Bilirubin 0.4 mg/dL (0.2-1.2) 07/14/20 11:41 AST 21 U/L (5-34) 07/14/20 11:41 ALT 23 U/L (8-55) 07/14/20 11:41 Alkaline Phosphatase 69 U/L (40-110) 07/14/20 11:41 Creatine Kinase 103 U/L (29-168) 07/14/20 11:41 B-Natriuretic Peptide 20.3 pg/mL (0-100) 07/14/20 11:41 Serum Total Protein 7.2 g/dL (6.0-8.3) 07/14/20 11:41 Albumin 4.1 g/dL (3.5-5.0) 07/14/20 11:41 Lipase 26 U/L (8-78) 07/14/20 11:41 - Radiology Interpretation Chest x-ray Status: report reviewed by me (no acute cardiopulmonary process) FMR H&P: A/P - Problem List (1) Atypical chest pain Current Visit: Yes Status: Acute Code(s): R07.89 - OTHER CHEST PAIN (2) Essential (primary) hypertension Current Visit: Yes Status: Acute Code(s): I10 - ESSENTIAL (PRIMARY) HYPERTENSION (3) Congestive heart failure Current Visit: Yes Status: Acute Code(s): I50.9 - HEART FAILURE, UNSPECIFIED Qualifiers: Heart failure type: systolic Heart failure chronicity: chronic Qualified Code(s): I50.22 - Chronic systolic (congestive) heart failure (4) Diabetes Current Visit: Yes Status: Chronic Code(s): E11.9 - TYPE 2 DIABETES MELLITUS WITHOUT COMPLICATIONS Qualifiers: Diabetes mellitus type: type 2 Diabetes mellitus long term care phlebotomist insulin use: without correction use Diabetes mellitus complication status: without complication Qualified Code(s): E11.9 - Type 2 diabetes mellitus without complications (5) Microcytic anemia Current Visit: No Status: Chronic Code(s): D50.9 - IRON DEFICIENCY ANEMIA, UNSPECIFIED - Plan This is a 39 y/o F with PMHx of HFrEF, DM, HTN, Cardiomyopathy, and Iron Def. Anemia presenting with chest pain. ## Atypical Chest Pain -most likely 2/2 MSK due to physical exam findings -initial trop 0.018, will trend -init-al EKG neg for ST changes -echo, cath done at last admission in March cath showed nml coronary arteries echo showed EF 35-40% with grade 1/3 diastolic dysfunction -admit obs/telemetry -nitro prn chest pain -GI cocktail ordered ##HFrEF -echo results from 03/2020 shown as above -currently euvolemic -BNP 20 -CXR no fluid overload -continue home meds, increased entresto and coreg by 2x her prescribed amount Chronic Conditions ##HTN: continue home meds ##DM: continue home meds ##Iron def. anemia: continue home meds DIET: HH CODE: FULL VTE: none PCP: ADAM-Bjorn Dispo: admitted obs telemetry for trend troponin and observation on telemetry, anticipate dc tomorrow. FMR H&P: Upper Level - Plan Date/Time: 07/14/20 1318 IBrian DO, have evaluated this patient and agree with findings/plan as outlined by international coordinator resident. Pertinent changes/additions are listed here. This is a 39 yo female with a pmh of mixed heart failure, HTN, microcytic anemia who presents to the ER with a cc of chest pain. She states the pain has been going on for the last 3 days, is a 7/10, sharp, radiating to bilateral arms, and is associated with mild SOB, nausea, and vomiting. She reports she has vomited 3 times this AM. In addition, she states her fingers are tingling. She reports mild swelling in her legs. She is currently in NAD, lungs are CTAB, heart is RRR without murmurs. She has trace edema and distal pulses at 2+ globally. VSS, hypertensive. Please see international coordinator note for further information A/P Atypical chest pain likely 2/2 msk vs. GERD -Pt has a significant pmh however the pain is reproducible and she had normal coronary arteries 3 months ago. -Troponin neg x1, CKR WNL, EKG shows no ST elevations or depressions there are T wave inversions present -Heart score of 4 -S/P nitro and ASA -Continue home meds -Call cardiology for recs Mixed heart failure -Echo on 03/2020 shows EF of 35-40% with Grade 1/3 diastolic dysfunction -Does not appear to be fluid overload Microcytic anemia -Stable at this time -Hgb 10.8 HTN -Continue home meds Code: Full Prophylaxis: None Family: Partner at bedside Fluids: SL Diet: HH Disposition: DC in 1-2 days PCP: ADAM Rojas Addendum - Attending - Attending Attestation Date/Time: 07/15/20 8892 I personally evaluated the patient and discussed the management with Dr. Riggs. I agree with the History, Examination, Assessment and Plan documented above with any addition or exceptions noted below.
[2020-07-14] MEDS ORDERED: Dextrose 5% in Water 1,000 ML IV PRN (14:08)
[2020-07-14] MEDS ORDERED: Dextrose 50% Abboject 50 ML SYRINGE SLOW IVP PRN (14:08)
[2020-07-14] MEDS ORDERED: HumaLOG 300 UNITS/3 ML VIAL SC PRN ×2 (14:08)
[2020-07-14] MEDS ORDERED: Acetaminophen 325 MG TAB PO PRN (14:08)
[2020-07-14] MEDS ORDERED: Nitroglycerin 0.4 MG TAB 1 EACH SL PRN (15:10)
[2020-07-14] MEDS ORDERED: Lidocaine 2% Viscous Solution 10 ML, Aluminum & Magnesium Hydroxide 30 ML SSW SCH (15:15)
[2020-07-14 15:36] LABS: Troponin I Less than 0.010 ng/mL (< 0.028)
[2020-07-14] MEDS ORDERED: Lidocaine Viscous Sol 2% 15 ml UD Cup ONE (17:50)
[2020-07-14] MEDS ORDERED: Mag-Al 1200 mg/1200 mg/30 ML UDCUP ONE (17:50)
[2020-07-14 18:19] LABS: Troponin I Less than 0.010 ng/mL (< 0.028)
[2020-07-14] MEDS: Carvedilol 6.25 MG TAB PO SCH (18:33)
[2020-07-14 20:36] VITALS: BMI 44.1
[2020-07-14] MEDS ORDERED: Atorvastatin Calcium 40 MG TAB PO SCH (21:00)
[2020-07-14] MEDS: Sacubitril 49 MG/Valsartan 51 MG TABLET PO SCH (21:51)
--- NOTE | 2020-07-15 05:31 | PDOC.FM ---
- Subjective Subjective: Pt resting in bed comfortably this AM. No acute events overnight. States that her chest pain has improved and she some mild tenderness this AM. States that she is already on her max doses of entresto and coreg already. - Objective Vital Signs & Weight: Vital Signs (12 hours) Temp Pulse Resp BP BP Pulse Ox 07/15/20 04:55 97.8 F 70 14 130/57 L 97 07/15/20 00:21 98.5 F 67 14 115/59 L 98 07/14/20 20:27 98.2 F 82 22 H 132/87 97 07/14/20 18:33 166/94 H Weight Weight 95.799 kg Result Diagrams: 07/14/20 11:41 07/14/20 11:41 Phys Exam - Physical Examination Constitutional: NAD HEENT: PERRLA Neck: no nodes Respiratory: no wheezing, no rales, no rhonchi, clear to auscultation bilateral Cardiovascular: RRR, no significant murmur, no rub Gastrointestinal: soft, non-tender, no distention Musculoskeletal: pulses present pedal edema bilaterally Neurological: non-focal, normal sensation Lymphatic: no nodes Psychiatric: normal affect, A&O x 3 Skin: no rash, normal turgor, cap refill <2 seconds Dx/Plan (1) Atypical chest pain Code(s): R07.89 - OTHER CHEST PAIN Status: Acute (2) Essential (primary) hypertension Code(s): I10 - ESSENTIAL (PRIMARY) HYPERTENSION Status: Acute (3) Congestive heart failure Code(s): I50.9 - HEART FAILURE, UNSPECIFIED Status: Acute Qualifiers: Heart failure type: systolic Heart failure chronicity: chronic Qualified Code(s): I50.22 - Chronic systolic (congestive) heart failure (4) Diabetes Code(s): E11.9 - TYPE 2 DIABETES MELLITUS WITHOUT COMPLICATIONS Status: Chronic Qualifiers: Diabetes mellitus type: type 2 Diabetes mellitus moth exterminator insulin use: without moth exterminator use Diabetes mellitus complication status: without complication Qualified Code(s): E11.9 - Type 2 diabetes mellitus without complications (5) Microcytic anemia Code(s): D50.9 - IRON DEFICIENCY ANEMIA, UNSPECIFIED Status: Chronic - Plan Plan: This is a 39 y/o F with PMHx of HFrEF, DM, HTN, Cardiomyopathy, and Iron Def. Anemia presenting with chest pain. ## Atypical Chest Pain -most likely 2/2 MSK due to physical exam findings -initial trop 0.018, trended troponins have been negative -init-al EKG neg for ST changes -echo, cath done at last admission in March cath showed nml coronary arteries echo showed EF 35-40% with grade 1/3 diastolic dysfunction -admit obs/telemetry -nitro prn chest pain -GI cocktail ordered ##HFrEF -echo results from 03/2020 shown as above -currently euvolemic -BNP 20 -CXR no fluid overload -continue home meds, increased entresto and coreg by 2x her prescribed a mount--she is already on these doses at home. Chronic Conditions ##HTN: continue home meds ##DM: continue home meds ##Iron def. anemia: continue home meds DIET: HH CODE: FULL VTE: none PCP: Bryan Dispo: admitted obs telemetry for observation, improved today, anticipate dc today. Addendum - Attending - Attending Attestation Date/Time: 07/15/20 1251 I personally evaluated the patient and discussed the management with Dr. Riggs. I agree with the History, Examination, Assessment and Plan documented above with any addition or exceptions noted below.
[2020-07-15] MEDS ORDERED: metFORMIN 500 MG TAB PO SCH ×2 (08:00)
[2020-07-15] MEDS ORDERED: Ferrous Sulfate 325 MG TAB PO SCH (08:00)
[2020-07-15 08:20] VITALS: BP 123/74; TEMP 97.9
[2020-07-15] MEDS: Carvedilol 6.25 MG TAB PO SCH (08:36)
[2020-07-15] MEDS: Sacubitril 49 MG/Valsartan 51 MG TABLET PO SCH (08:36)
[2020-07-15] MEDS ORDERED: Furosemide 20 MG TAB PO SCH (09:00)
[2020-07-15] MEDS ORDERED: Aspirin 81 mg Enteric Coated Tablet PO SCH (09:00)
[2020-07-15 13:27] LABS: SARS-CoV-2 MS2 Positive; SARS-CoV-2 N Gene Negative; SARS-CoV-2 S Gene Negative; SARS-CoV-2 by NAA Not Detected (NotDetected); SARS-CoV-2 orf1ab Negative
--- NOTE | 2020-07-16 04:33 | DIS ---
DATE OF ADMISSION: 07/14/2020 DATE OF DISCHARGE: 07/15/2020 RESIDENT: Mary Kay Riggs DO ADMITTING ATTENDING: Cameron Young MD DISCHARGE ATTENDING: Cameron Young MD. CONSULTS: None. PROCEDURES: None. PRIMARY DIAGNOSIS: Atypical chest pain. SECONDARY DIAGNOSES: 1. Heart failure with reduced ejection fraction. 2. Diabetes type 2. 3. Hypertension. 4. Cardiomyopathy. 5. Iron deficiency anemia. DISCHARGE MEDICATIONS: 1. Aspirin 81 p.o. daily. 2. Lipitor 40 mg p.o. at bedtime. 3. Ferrous sulfate 325 mg p.o. b.i.d. 4. Lasix 20 mg p.o. daily. 5. Coreg 12.5 mg p.o. b.i.d. 6. Entresto 49/51, one tab p.o. b.i.d. 7. Metformin 500 mg p.o. q.a.m. DISCONTINUED MEDICATIONS: None. HISTORY OF PRESENT ILLNESS/HOSPITAL COURSE: This is a 39-year-old female with a past medical history of above, who presented for chest pain for the past 2-3 days. She said that the pain started on the left side of her chest and admitted its radiation to bilateral arms. Both of her hands were tingling and numb. However, she denied having weakness, numbness on one side of her body, facial droop, slurred speech or dyspnea with her chest pain. She did not take any medication with the onset of her chest pain. She states that since her last admission at the end of April for a CHF exacerbation, she is doing well and has been compliant with all her medications. She [place] head [place] She has no other complaints. Her hospital course was unremarkable. Overnight her telemetry strip showed no arrhythmias or any concerning findings. Her troponin initially was negative and trended to be negative as well. We made sure that she will be on the max dose of her medications for her heart failure. However, she was already on the max doses for Coreg and Entresto at this time. The patient was feeling better the following morning with her chest pain. Of note she had a recent heart catheterization done and an echo done on her last admission that were both unremarkable. She was advised that she did not need any further testing while she was here and to follow up with her head start director. DISPOSITION: Stable. DISCHARGE INSTRUCTIONS: Location: Home. Diet: Heart healthy. Activity: As tolerated. Followup: Follow up 1 week with [facility] with Dr. Milan Follow up with System Administration Advisor 2-3 weeks. Job ID: [id number] MTDD
== END 2020-07-15 12:27 | disposition home or self-care (01) ==
LOC: ERS 10:57 → ERHOLD 13:25 → 2SW 20:23
PROVIDERS: ADMIT Family Medicine; ATTEND Family Medicine
DX: R07.89 Other chest pain (principal); I11.0 Hypertensive heart disease with heart failure; I50.22 Chronic systolic (congestive) heart failure; E11.9 Type 2 diabetes mellitus without complications; I42.9 Cardiomyopathy, unspecified; D50.9 Iron deficiency anemia, unspecified; Z79.82 Long term (current) use of aspirin; Z79.84 Long term (current) use of oral hypoglycemic drugs; Z79.899 Other long term (current) drug therapy; Z20.828 Contact with and (suspected) exposure to other viral communicable diseases
CPT/HCPCS: 36415; 36416; 71045; 80053; 82550; 83690; 83880; 84484; 85025; 87635; 93005; G0378; U0003

== ENCOUNTER 2020-11-17 05:56 | Day surgery (SDC) | payer OTHER ==
[2020-11-12 16:31] LABS: Hemoglobin 11.2 g/dL (12.0-16.0); Mean Corpuscular HGB CONC 31.8 G/DL (32.0-36.0); Mean Corpuscular Hemoglobin 26.7 PG (27.0-33.0); Mean Corpuscular Volume 83.8 fl (80.0-100.0); Mean Platelet Volume 10.6 fl (7.4-10.4); Platelet Count 315 10x3/uL (130-400); RBC Distribution Width 14.6 % (11.5-14.5); White Blood Cell (WBC) Count 7.4 10x3/uL (4.5-11.0)
[2020-11-12 16:35] LABS: BHCG - Serum Negative (NEGATIVE); Pregs Control Background? CLEAR/WHITE (CLR/WHITE); Pregs Control Bar Appear? YES (CONTROL BAR)
--- NOTE | 2020-11-13 12:00 | HP ---
Scheduled surgery date is 11/17/2020. HISTORY OF PRESENT ILLNESS: Ms. Guerrier is a 40-year-old female, G4, P2, A2, with prior section x2 and also a history of an Essure device in the past. She did have an ectopic after the Essure device, necessitating a partial salpingectomy. She was referred by the [facility] due to heavy bleeding issues and dysmenorrhea and continued pain with the Essure device. She reports having to stay at home on her menstrual cycle due to the heavy flow and also the severe cramping she experiences. She is using nonsteroidal agents during this time with minimal improvement. She has adult onset diabetes and chronic hypertension with some degree of congestive heart failure in the past and is being under control with a recent ejection fraction in the 50th percentile range. Her forest logistics manager is Dr. Durham in the [facility]. PAST MEDICAL HISTORY: As noted, adult onset diabetes, hyperlipidemia, hypertension, and prior heart failure. PAST SURGICAL HISTORY: section x2. She also had the ectopic with excision of the tube at that time. ALLERGIES: SHE HAS NO KNOWN DRUG ALLERGIES. SOCIAL HISTORY: Nonsmoker. No excessive alcohol use. CURRENT MEDICATIONS: 1. Atorvastatin 40 mg tablet daily. 2. Carvedilol 12.5 mg tablet b.i.d. 3. Entresto 97 mg/103 mg tablet one twice a day. 4. Lasix 20 mg tablet daily. 5. Metformin 850 mg tablet one b.i.d. PHYSICAL EXAMINATION: VITAL SIGNS: Her height is 4 feet 10 inches, 216 pounds, and BMI of 45. Blood pressure 126/72, pulse 65, respiratory rate 18, and O2 saturation on room air 97%. HEENT: Within normal limits. CHEST: Clear to auscultation. HEART: Regular rate and rhythm, S1 and S2 heart sounds. ABDOMEN: Soft, nontender, obese. Well-healed Pfannenstiel scar noted. No hernia palpable. PELVIC: Vulva and vagina had no lesions. Cervix had no lesions. She has had a normal Pap smear within the past 3 years. Uterus is small and mildly tender on exam. Adnexa nontender with no masses. DIAGNOSTIC STUDIES: Pelvic ultrasound performed in my office showed uterus measuring 9.5 x 4.92 cm with a right Essure device seen in the right region of the tube and cornua, left was not seen. No adnexal masses. Myometrium had a heterogeneous texture, consistent with adenomyosis. ASSESSMENT: This is a 40-year-old female with prior section x2. Essure device with ectopic in the past on the left with severe dysmenorrhea, menorrhagia, and chronic pelvic pain. Has tried nonsteroidals with minimal improvement. She also has a significant medical history, which would be contraindicated for use of oral contraceptives. Clinically suspect adenomyosis. PLAN: To proceed with robotic assisted hysterectomy with bilateral salpingectomies. Risks and benefits of procedure have been discussed in detail, set for surgery on 11/17/2020. Job ID: [id number]
[2020-11-13 13:26] VITALS: BMI 44.9
[2020-11-13 17:50] LABS: SARS-CoV-2 PCR by NAA Not Detected (NotDetected)
[2020-11-17] MEDS ORDERED: CeleCOXIB 100 MG CAP ONE (06:17)
[2020-11-17] MEDS ORDERED: Gabapentin 300 MG CAP ONE (06:17)
[2020-11-17] MEDS ORDERED: Famotidine/PF 20 mg/2ml Vial ONE (06:17)
[2020-11-17] MEDS ORDERED: Fentanyl 100 MCG/2 ML VIAL ONE ×2 (06:31→10:17)
[2020-11-17] MEDS ORDERED: XYLOCAINE 2%-EPI 1:100,000 20 ML VIAL ONE (06:54)
[2020-11-17] MEDS ORDERED: Bupivacaine PF 0.5% 30 ML VIAL ONE (06:54)
[2020-11-17] MEDS ORDERED: Morphine 2 MG/ML VIAL SLOW IVP PRN (09:43)
[2020-11-17] MEDS ORDERED: Bisacodyl 10 MG SUPP PR PRN (09:43)
[2020-11-17] MEDS ORDERED: Simethicone Chewable 80 MG TAB PO PRN (09:43)
[2020-11-17] MEDS ORDERED: Promethazine HCl 25 MG/ML VIAL IM PRN (09:43)
[2020-11-17] MEDS ORDERED: diphenhydrAMINE 25 MG CAP PO PRN (09:43)
[2020-11-17] MEDS ORDERED: traMADol HCl 50 MG TAB PO PRN ×2 (09:43)
[2020-11-17] MEDS ORDERED: Morphine 4 MG/ML VIAL SLOW IVP PRN (09:43)
[2020-11-17] MEDS ORDERED: Ondansetron PF 4 MG/2 ML Vial IVP PRN (09:43)
[2020-11-17] MEDS ORDERED: Sodium Chloride 0.9% 1,000 ML IV SCH (09:45)
[2020-11-17] MEDS ORDERED: Rocuronium Bromide 10 MG/ML (10ML VIAL) ONE (10:57)
[2020-11-17] MEDS ORDERED: Ondansetron PF 4 MG/2 ML Vial ONE (10:57)
[2020-11-17] MEDS ORDERED: Glycopyrrolate 0.2 MG/ML 5 ML SYRINGE ONE (10:57)
[2020-11-17] MEDS ORDERED: Lidocaine 1% PF 5 ML VIAL ONE (10:57)
[2020-11-17] MEDS ORDERED: PROPOFOL 200 MG/20 ML VIAL ONE (10:57)
[2020-11-17] MEDS ORDERED: Dexamethasone 20 MG/5 ML VIAL ONE (10:57)
--- NOTE | 2020-11-17 12:21 | OP ---
DATE OF PROCEDURE: 11/17/2020 PREOPERATIVE DIAGNOSES: 1. A 40-year-old female G3, P2, A1, prior x2, with menorrhagia, dysmenorrhea, pelvic pain. 2. Suspect clinical adenomyosis. POSTOPERATIVE DIAGNOSES: 1. A 40-year-old female G3, P2, A1, prior x2, with menorrhagia, dysmenorrhea, pelvic pain. 2. Suspect clinical adenomyosis. 3. Pelvic adhesive disease. PROCEDURES PERFORMED: 1. Robotic total laparoscopic hysterectomy and bilateral salpingectomy. 2. Lysis of pelvic adhesions. MANAGER INSIDE SURGEON: Yue Cooley PA-C. ANESTHESIA: General endotracheal. ESTIMATED BLOOD LOSS: 25 mL. COMPLICATIONS: None. COUNTS: Correct x2. ANTIBIOTICS: 2 g Ancef on-call to OR with ERAS protocol. PATHOLOGY: Uterus, cervix, bilateral fallopian tubes. FINDINGS: 1. Normal bilateral ovaries. 2. Fallopian tubes noted Essure devices in the proximal tubes status post excision. 3. Omental adhesions and what appeared to be a small hernia and a previous hernia sac into the midportion of the Pfannenstiel incision site status post excision. 4. Some bladder adhesions to the lower uterine segment and bladder were watertight intermittently during the operation and post colpotomy procedure with no evidence of fluid extravasating with distention. 5. Clear urine present in Patiño catheter postprocedure. DISPOSITION: Recovery room, stable. DESCRIPTION OF PROCEDURE: The patient previously received informed consent in regard to surgery. She was taken back to the operating room, where she received a general endotracheal anesthetic agent. She was placed in dorsal lithotomy position with the use of Omega stirrups and prepped and draped in usual sterile fashion. At this time, a Patiño catheter was placed. Side-arm speculum was placed in the vagina. The anterior lip of cervix was grasped with single-tooth tenaculum and the uterus sounded to 11 cm. A size 10 cm NELSON uterine manipulator with a 3.5 cm cervical cup was placed in usual fashion. Speculum and tenaculum removed. The patient's abdomen had a prep and a Veress needle was placed in supraumbilical. Incision was made into the peritoneal cavity. The patient's pressure was noted to be less than 5 mm. Abdomen was insufflated with patient pressure of 15, approximately 4 L of carbon dioxide gas. Veress needle was removed. A size 12 mm trocar was placed and the laparoscope was introduced through the trocar sleeve confirming proper entry. Additional trocar ports were placed in bilateral lower quadrant, 8 mm trocars in the right upper quadrant assistant bookkeeper port. The patient was in Trendelenburg position and robot was docked. I then proceeded to carry out the surgery from the operative console while my assistant bookkeeper remained at the bedside. The omental adhesions in the lower anterior abdominal wall were taken down in a layering fashion with Bovie cautery and monopolar scissors, improving the operative field. We took the left fallopian tube, coagulated along the mesosalpinx, excised and brought out through the right upper quadrant port. There was a thickened dense fibrous adhesion that was going up from the midportion of the uterus into the abdominal wall. We carefully incised over this to give more mobility to the uterus, then coagulated the left utero-ovarian ligament, took that down to the left round ligament, cauterized that and transected it. This allowed me to get into the vesicouterine peritoneal plane laterally. We distended the bladder intermittently to ascertain its position during this time. I skeletonized the uterine vessels on the left and coagulated in the internal cervical os region. This was carried out in similar fashion on the right fallopian tube. Again, it was removed after being cauterized in the mesosalpinx with the Essure device noted through the right upper quadrant port. The right utero-ovarian ligament was coagulated and transected hugging close to uterus, we went down to the right round ligament, coagulated that and transected it. Again, the vesicouterine peritoneum was incised laterally and then this was able to dissect some more the vesicouterine peritoneum, dropping the bladder down, but intermittently we distended the bladder to confirm its position. The uterine vessels were skeletonized and coagulated. We then made a posterior colpotomy at 6 to 3 about 2 o'clock to ascertain the position of the cervix which aided any further dissecting the bladder for confirming its position. The dense fibrous adhesion further was taken down, but we knew that was not incorporated into the bladder, which aided mobility. We continued to carefully dissect the bladder past the cervical vaginal margin with intermittent distention and cutting on the vesicouterine peritoneum away from the bladder, dropping it past the cervical vaginal margin. This allowed us then to complete the anterior colpotomy from 3 to 9 and 9 to 6. The specimen was then brought into the vaginal vault. My monopolar scissor was exchanged with a needle hydraulic lift driver. A Stratafix suture was brought in after I coagulated the vaginal cuff for hemostasis and the cuff was closed in full-thickness closure from the right angle to the left angle back towards the right angle. The excess suture and needle were removed through the right upper quadrant port. We dropped the pressure down. All the pedicle sites were hemostatic. Irrigated again the pelvis and hemostasis was confirmed. The robot was then undocked and I rescrubbed and placed a [id number] stitch in the fascial defect in the umbilicus and then closed all the port sites with 4-0 Monocryl and Dermabond. The vaginal vault was inspected and noted to be hemostatic with the sponge stick and clear urine was draining from the Patiño catheter. The patient was then awakened and transferred to recovery room in stable condition. Job ID: [id number]
[2020-11-17] MEDS ORDERED: Ibuprofen 600 MG TAB PO SCH (14:00)
[2020-11-17] MEDS ORDERED: HYDROcodone/Acetaminophen 5/325 mg Tablet ONE ×2 (15:43→17:08)
[2020-11-17] MEDS ORDERED: Carvedilol 6.25 MG TAB PO SCH (17:00)
[2020-11-17] MEDS ORDERED: Ferrous Sulfate 325 MG TAB PO SCH (17:00)
[2020-11-17] MEDS ORDERED: Atorvastatin Calcium 40 MG TAB PO SCH (21:00)
[2020-11-17] MEDS ORDERED: Sacubitril 49 MG/Valsartan 51 MG TABLET PO SCH (21:00)
[2020-11-18] MEDS ORDERED: metFORMIN 500 MG TAB PO SCH (08:00)
[2020-11-18] MEDS ORDERED: Aspirin 81 mg Enteric Coated Tablet PO SCH (09:00)
[2020-11-18] MEDS ORDERED: Furosemide 20 MG TAB PO SCH (09:00)
[2020-11-19] MEDS ORDERED: Ferrous Sulfate 325 MG TAB PO SCH (08:00)
== END 2020-11-17 17:20 | disposition home or self-care (01) ==
LOC: SDC 05:56
PROVIDERS: ATTEND Obstetrics & Gynecology
PROC: 0UT94ZZ Resection of Uterus, Percutaneous Endoscopic Approach (ICD-10-PCS; principal; 2020-11-17)
PROC: 0UT74ZZ Resection of Bilateral Fallopian Tubes, Percutaneous Endoscopic Approach (ICD-10-PCS; principal; 2020-11-17)
DX: N80.0 Endometriosis of uterus (principal); E11.9 Type 2 diabetes mellitus without complications; E78.5 Hyperlipidemia, unspecified; I11.0 Hypertensive heart disease with heart failure; I50.9 Heart failure, unspecified; Z79.84 Long term (current) use of oral hypoglycemic drugs; Z79.899 Other long term (current) drug therapy
CPT/HCPCS: 84703; 85027; 86850; 86900; 86901; 87635; 88307; J0690; J1100; J2405; J2704; J3010; S0020; S0028; U0003; U0005

== ENCOUNTER 2020-11-24 22:14 | Emergency (ER) | payer OTHER ==
[~2020-11-24 22:14] MED LIST: Iopamidol-370 76% 500 ML 1 ML ONE
[2020-11-24] MEDS ORDERED: Ondansetron PF 4 MG/2 ML Vial ONE (22:25)
[2020-11-24] MEDS ORDERED: Acetaminophen 500 MG TAB ONE ×2 (22:48)
[2020-11-24] MEDS ORDERED: Piperacillin/Tazobactam 4.5 GM VIAL ONE ×2 (22:48→23:27)
[2020-11-24 22:49] LABS: #Eosinphils 0.2 thou/uL (0.0-0.7); #Lymphocytes 1.8 thou/uL (1.20-3.40); #Monocytes 0.8 thou/uL (0.11-0.59); #Neutrophils 7.5 thou/uL (1.40-6.50); %Basophils 0.1 % (0.0-1.0); %Eosinophils 1.9 % (0.0-10.0); %Monocytes 7.4 % (0.0-10.0); %Neutrophils 72.6 % (42.0-75.0); Hemoglobin 12.2 g/dL (12.0-16.0); Mean Corpuscular HGB CONC 32.6 g/dL (32.0-36.0); Mean Corpuscular Hemoglobin 26.5 pg (27.0-31.0); Mean Corpuscular Volume 81.2 fL (78.0-98.0); Mean Platelet Volume 8.1 fL (7.4-10.4); Platelet Count 360 thou/uL (130-400); RBC Distribution Width 13.1 % (11.5-14.5); White Blood Cell (WBC) Count 10.3 thou/uL (4.8-10.8)
[2020-11-24 23:21] LABS: ALT (SGPT) 23 U/L (8-55); AST (SGOT) 29 U/L (5-34); Albumin 3.9 g/dL (3.5-5.0); Alkaline Phosphatase 101 U/L (40-110); Anion Gap 16 mmol/L (10-20); BUN (Urea Nitrogen) 7 mg/dL (7.0-18.7); Bilirubin, Total 0.5 mg/dL (0.2-1.2); Calc. Creatinine Clearance 0 mL/min (70-130); Calcium 9.1 mg/dL (7.8-10.44); Carbon Dioxide 22 mmol/L (22-29); Chloride 102 mmol/L (98-107); Globulin 4.2 g/dL (2.4-3.5); Glucose 181 mg/dL (70-105); Lipase 24 U/L (8-78); Potassium 4.5 mmol/L (3.5-5.1); Protein, Total 8.1 g/dL (6.0-8.3); Sodium 135 mmol/L (136-145)
--- NOTE | 2020-11-24 23:47 | RAD ---
EXAM: CHEST ONE VIEW HISTORY: Chest pain. Hysterectomy on Tuesday. Fever and elevated heart rate. COMPARISON: 07/14/2020 FINDINGS: Cardiac silhouette is magnified by projection but does appear mildly enlarged. The pulmonary vasculat ure is within normal limits. The lungs remain clear. Chest is stable compared to prior exam. IMPRESSION: 1. Mild cardiomegaly similar to prior exam. 2. No acute cardiopulmonary process.
--- NOTE | 2020-11-25 00:01 | CT ---
CT ABDOMEN AND PELVIS WITH IV CONTRAST 11/24/2020 CLINICAL INFORMATION: Abdominal pain, fever, chest pain, shortness of breath. Hysterectomy one week ago. COMPARISON: None. Technique: Multiple contiguous axial CT images are obtained through the abdomen and pelvis with IV contrast. Cor onal reformatted images are provided. FINDINGS: Lower Chest: Linear atelectasis versus scarring left lung base. Lung bases are otherwise clear. Vessels: Abdominal aorta is normal in caliber. Abdomen: Portal vein:Patent Gallbladder: Within normal limits for CT imaging. Liver: Hypodense lesion right hepatic lobe also seen on CTA chest on 04/08/2020 demonstrating characte ristics is suggestive of a hepatic cyst. Spleen: within normal limits. Pancreas: within normal limits. Adrenals: within normal limits. Kidneys: within normal limits. Bowel: Evidence of colonic diverticulosis. Loops of small bowel are normal in caliber. Appendix: The appendix is visualized and normal in caliber. Peritoneum/Retroperitoneum: There is mild stranding in the anterior aspect of the pelvis as well as i n the lower pelvis with trace free fluid in the pelvis. These findings are probably postoperative in origin. There is no fluid collection seen to suggest an abscess. Abdominal Wall: Punctate focus of gas in the subcutaneous adipose tissues supra umbilical location wh ich may be related to recent injection or secondary to recent postoperative change. Pelvis: Reproductive Organs: Evidence of hysterectomy. Bladder: Incompletely distended. Single punctate focus of gas is seen in the urinary bladder which co uld be related to recent catheterization. Clinical correlation suggested. Bones: No suspicious lytic or sclerotic osseous lesions. IMPRESSION: 1. Evidence of hysterectomy. There is inflammatory stranding within the pelvis probably related to po stoperative changes. No fluid collection is seen to suggest an abscess. 2. Punctate focus of gas in urinary bladder. This could be related to recent catheterization. Clinica l correlation recommended. 3. Hepatic cyst. 4. Colonic diverticulosis.
[2020-11-25 00:31] LABS: Bilirubin Negative (Negative); Blood, Urine Trace (Negative); Clarity Clear (Clear); Glucose, Urine (Dipstick) Normal (Negative); Ketone, Urine Negative (Negative); Leukocyte Negative Leu/uL (Negative); Nitrite Negative (Negative); Protein, Urine (Dipstick) 20 mg/dL (Neg-Trace); Urobilinogen Normal mg/dL (Less than 2); WBC/HPF 0-3 HPF (0-3)
[2020-11-25 00:32] LABS: Bacteria/HPF Rare-Few HPF (None Seen); Specific Gravity, Urine 1.058 (1.002-1.036)
[2020-11-25 02:30] LABS: Lactic Acid 2.5 mmol/L (0.5-2.2)
[2020-11-25 02:40] LABS: SARS-CoV-2 NAA Rapid Test Not Detected (NotDetected)
== END 2020-11-25 03:53 | disposition home or self-care (01) ==
LOC: ERS 22:14
DX: R50.9 Fever, unspecified (principal); R06.02 Shortness of breath; R07.9 Chest pain, unspecified; R10.9 Unspecified abdominal pain; Z20.822 Contact with and (suspected) exposure to COVID-19; I11.0 Hypertensive heart disease with heart failure; I50.9 Heart failure, unspecified; E11.9 Type 2 diabetes mellitus without complications; Z79.82 Long term (current) use of aspirin; Z79.84 Long term (current) use of oral hypoglycemic drugs; Z79.899 Other long term (current) drug therapy
CPT/HCPCS: 0240U; 36415; 71045; 74177; 80053; 81003; 81015; 83605; 83690; 84484; 85025; 87040; 87086; 93005; 96365; 96375; J2405; J2543; Q9967

== ENCOUNTER 2021-10-30 16:15 | Emergency (ER) | payer OTHER, SELFPAY ==
[2021-10-30] MEDS ORDERED: Dexamethasone 10 MG/ML VIAL ONE (16:45)
[2021-10-30 17:40] LABS: Hemoglobin 13.6 g/dL (12.0-16.0); Mean Corpuscular HGB CONC 33.6 g/dL (32.0-36.0); Mean Corpuscular Hemoglobin 28.5 pg (27.0-31.0); Mean Corpuscular Volume 84.9 fL (78.0-98.0); Mean Platelet Volume 7.1 fL (7.4-10.4); Platelet Count 313 thou/uL (130-400); RBC Distribution Width 12.9 % (11.5-14.5); Red Blood Cell (RBC) Count 4.76 mill/uL (4.20-5.40)
[2021-10-30 17:56] LABS: ALT (SGPT) 23 U/L (8-55); AST (SGOT) 31 U/L (5-34); Albumin 4.1 g/dL (3.5-5.0); Alkaline Phosphatase 68 U/L (40-110); Anion Gap 15 mmol/L (10-20); BUN (Urea Nitrogen) 11 mg/dL (7.0-18.7); Bilirubin, Total 0.2 mg/dL (0.2-1.2); Calc. Creatinine Clearance 0 mL/min (70-130); Calcium 9.8 mg/dL (7.8-10.44); Carbon Dioxide 25 mmol/L (22-29); Chloride 104 mmol/L (98-107); Globulin 4.1 g/dL (2.4-3.5); Glucose 117 mg/dL (70-105); Potassium 5.2 mmol/L (3.5-5.1); Protein, Total 8.2 g/dL (6.0-8.3); Sodium 139 mmol/L (136-145)
[2021-10-30 18:25] LABS: Band 1 % (5-11); Eosinophils 1 % (0-10); Lymphocytes 55 % (21-51); MDiff Complete? YES; Monocytes 9 % (0-10); Neutrophil 34 % (42-75); Platelet Morphology Comment Appears Adequate; RBC Morphology Normal
[2021-10-31 00:19] LABS: SARS-CoV-2 PCR by NAA DETECTED (NotDetected)
== END 2021-10-30 19:15 | disposition home or self-care (01) ==
LOC: ERS 16:15
DX: U07.1 COVID-19 (principal); E11.9 Type 2 diabetes mellitus without complications; I11.0 Hypertensive heart disease with heart failure; I50.9 Heart failure, unspecified; E78.00 Pure hypercholesterolemia, unspecified; Z79.82 Long term (current) use of aspirin; Z79.84 Long term (current) use of oral hypoglycemic drugs; Z79.899 Other long term (current) drug therapy
CPT/HCPCS: 71045; 80053; 84484; 85025; 85652; 86140; 93005; 96374; J1100; U0003; U0005